=== PATIENT | female | born 1970 | race Caucasian/White ===

== ENCOUNTER → 2018-03-10 | Outpatient (CLI) | payer OTHER ==
[2018-03-10 18:28] LABS: Basophils % (A) 1 %; Eosinophils # (A) 0.4 k/uL (0-0.7); Eosinophils % (A) 6 %; HCT 33.8 % (34.0-46.0); HGB 11.1 gm/dL (11.4-16.0); Hypochromasia Slight; Lymphocytes % (A) 30 %; MCH 25.1 pg (25.0-35.0); MCHC 32.8 g/dL (31.0-37.0); MCV 76.7 fL (80.0-100.0); Mean Platelet Volume 8.8; Monocytes # (A) 0.4 k/uL (0-1.0); Monocytes % (A) 6 %; Neutrophils # (A) 3.6 k/uL (1.3-7.7); Neutrophils % (A) 55 %; Platelet Count 213 k/uL (150-450); RBC 4.41 m/uL (3.80-5.40); RDW 14.5 % (11.5-15.5); WBC 6.5 k/uL (3.8-10.6)
== END ==
LOC: LABPAT 16:48
PROVIDERS: ATTEND Obstetrics & Gynecology
DX: Z01.818 Encounter for other preprocedural examination (principal); Z01.812 Encounter for preprocedural laboratory examination; N93.8 Other specified abnormal uterine and vaginal bleeding
CPT/HCPCS: 36415; 85025; 93005

== ENCOUNTER 2021-01-10 09:24 | Inpatient (IN) | payer OTHER ==
[2021-01-10] MEDS ORDERED: SODIUM CHLORIDE 0.9% 1,000 ML IV STA (09:48)
--- NOTE | 2021-01-10 09:48 | ED ---
Abdominal Pain HPI - General Chief Complaint: Abdominal Pain Stated Complaint: Abdominal Pain Time Seen by Provider: 01/10/21 09:29 Source: patient, EMS Mode of arrival: EMS - History of Present Illness Initial Comments: 50-year-old female presents emergency Department with abdominal pain. Pain located in the right upper quadrant started yesterday around 7 PM after she ate some fast food col[place]ian fries. Pain was so severe that she went into [facility]. She had a CT of her abdomen and pelvis performed as well as an abdominal ultrasound and laboratory studies. Everything was normal and she was discharged home without any pain medications. States she received Toradol, morphine and Dilaudid over at the other facility with only mild improvement in her symptoms. Patient continued to have continued pain at home and therefore returns today via EMS. They did provide her with formula grams of morphine en route to the hospital. Denies history of similar in the past. Previous history of . Denies any abnormal vaginal bleeding or discharg e. No change in her bowel or bladder habits. Admits to nausea. No fevers. No chest pain or shortness of breath. No other alleviating, precipitating or modifying factors - Related Data Home Medications Medication Instructions Recorded Confirmed Atorvastatin [Lipitor] 20 mg PO DAILY 03/11/18 01/10/21 Fenofibrate Nanocrystallized 145 mg PO DAILY 03/11/18 01/10/21 [Fenofibrate] Metoprolol Tartrate [Lopressor] 50 mg PO BID 03/11/18 01/10/21 Omeprazole 20 mg PO DAILY 03/11/18 01/10/21 Sertraline [Zoloft] 75 mg PO DAILY 03/11/18 01/10/21 Irbesartan/Hydrochlorothiazide 1 tab PO DAILY 01/10/21 01/10/21 [Irbesartan-Hctz 300-12.5 mg Tb] Previous Rx's Medication Instructions Recorded Acetaminophen Tab [Tylenol] 650 mg PO Q6HR PRN tab 01/14/21 Omeprazole [PriLOSEC] 40 mg PO DAILY #30 cap 01/14/21 Allergies Allergy/AdvReac Type Severity Reaction Status Date / Time latex Allergy Rash/Hives Verified 01/10/21 11:11 Review of Systems ROS Statement: Those systems with pertinent positive or pertinent negative responses have been documented in the HPI. ROS Other: All systems not noted in ROS Statement are negative. Past Medical History Past Medical History: GERD/Reflux, Hyperlipidemia, Hypertension Additional Past Medical History / Comment(s): heavy periods History of Any Multi-Drug Resistant Organisms: None Reported Past Surgical History: Section Additional Past Surgical History / Comment(s): D&C. LIPOMA REMOVAL. CARPAL TUNNEL RELEASE Past Anesthesia/Blood Transfusion Reactions: No Reported Reaction Past Psychological History: Anxiety, Depression Smoking Status: Never smoker Past Alcohol Use History: Occasional Past Drug Use History: None Reported - Past Family History Mother Family Medical History: No Reported History Father Family Medical History: No Reported History General Exam General appearance: alert, in no apparent distress Head exam: Present: atraumatic, normocephalic, normal inspection Eye exam: Present: normal appearance, PERRL, EOMI. Absent: scleral icterus, conjunctival injection, periorbital swelling ENT exam: Present: normal exam, mucous membranes moist Neck exam: Present: normal inspection. Absent: tenderness, meningismus, lymphadenopathy Respiratory exam: Present: normal lung sounds bilaterally. Absent: respiratory distress, wheezes, rales, rhonchi, stridor Cardiovascular Exam: Present: regular rate, normal rhythm, normal heart sounds. Absent: systolic murmur, diastolic murmur, rubs, gallop, clicks GI/Abdominal exam: Present: soft, tenderness (RUQ), normal bowel sounds. Ab sent: distended, guarding, rebound, rigid Extremities exam: Present: normal inspection, full ROM, normal capillary refill. Absent: tenderness, pedal edema, joint swelling, calf tenderness Back exam: Present: normal inspection Neurological exam: Present: alert, oriented X3, CN II-XII intact Psychiatric exam: Present: normal affect, normal mood Skin exam: Present: warm, dry, intact, normal color. Absent: rash Course Vital Signs 01/10/21 01/10/21 09:26 14:55 Temperature 99.3 F 98.8 F Pulse Rate 100 Pulse Rate [ 91 Pulse Oximetery ] Respiratory 18 18 Rate Blood Pressure 133/67 Blood Pressure 157/79 [Right Arm] O2 Sat by Pulse 93 L 94 L Oximetry - Reevaluation(s) Reevaluation #1: 01/10/21 11:38 Still awaiting reports from [facility] Reevaluation #2: 01/10/21 12:00 still no ultrasound report - will have to repeat us here Medical Decision Making - Medical Decision Making Upon arrival patient is placed into room 27. We do attempt to obtain records from [facility] however they attempted 3 times to send the information are unable to receive it. I repeated laboratory studies which are all within normal limits. Urinalysis demonstrates moderate bacteria and blood. Covid negative. I did complete a gallbladder ultrasound which demonstrates no acute findings. Called and spoke with Dr. Dangelo. Dr. Dangelo agreed to admit the patient for HIDA. Patient agreed to the plan - Lab Data Result diagrams: 01/14/21 06:33 01/14/21 06:33 Lab Results 01/10/21 01/10/21 01/10/21 Range/Units 09:51 09:51 09:51 WBC 11.3 H (3.8-10.6) k/uL RBC 4.68 (3.80-5.40) m/uL Hgb 13.1 (11.4-16.0) gm/dL Hct 38.8 (34.0-46.0) % MCV 83.0 (80.0-100.0) fL MCH 27.9 (25.0-35.0) pg MCHC 33.6 (31.0-37.0) g/dL RDW 13.0 (11.5-15.5) % Plt Count 178 (150-450) k/uL MPV 9.5 Neutrophils % 87 % Lymphocytes % 8 % Monocytes % 4 % Eosinophils % 0 % Basophils % 0 % Neutrophils # 9.9 H (1.3-7.7) k/uL Lymphocytes # 0.9 L (1.0-4.8) k/uL Monocytes # 0.4 (0-1.0) k/uL Eosinophils # 0.1 (0-0.7) k/uL Basophils # 0.0 (0-0.2) k/uL ESR (0-20) mm/hr APTT (22.0-30.0) sec D-Dimer (<0.60) mg/L FEU Sodium 137 (137-145) mmol/L Potassium 3.8 (3.5-5.1) mmol/L Chloride 105 (98-107) mmol/L Carbon Dioxide 24 (22-30) mmol/L Anion Gap 8 mmol/L BUN 8 (7-17) mg/dL Creatinine 0.50 L (0.52-1.04) mg/dL Est GFR (CKD-EPI)AfAm >90 (>60 ml/min/1.73 sqM) Est GFR (CKD-EPI)NonAf >90 (>60 ml/min/1.73 sqM) Glucose 117 H (74-99) mg/dL Plasma Lactic Acid Moses (0.7-2.0) mmol/L Calcium 10.1 (8.4-10.2) mg/dL Magnesium (1.6-2.3) mg/dL Total Bilirubin 0.8 (0.2-1.3) mg/dL AST 35 (14-36) U/L ALT 30 (4-34) U/L Alkaline Phosphatase 52 (38-126) U/L Troponin I (0.000-0.034) ng/mL C-Reactive Protein (<1.0) mg/dL Total Protein 7.2 (6.3-8.2) g/dL Albumin 4.4 (3.5-5.0) g/dL Lipase 36 (23-300) U/L CA 125 Antigen (0.0-30.1) U/mL Urine Color Light Yellow Urine Appearance Cloudy H (Clear) Urine pH 7.0 (5.0-8.0) Ur Specific [place] 1.008 (1.001-1.035) Urine Protein Negative (Negative) Urine Glucose (UA) Negative (Negative) Urine Ketones Negative (Negative) Urine Blood Moderate H (Negative) Urine Nitrite Negative (Negative) Urine Bilirubin Negative (Negative) Urine Urobilinogen <2.0 (<2.0) mg/dL Ur Leukocyte Esterase Negative (Negative) Urine RBC 1 (0-5) /hpf Urine WBC 4 (0-5) /hpf Ur Squamous Epith Cells 3 (0-4) /hpf Urine Bacteria Moderate H (None) /hpf Urine Opiates Screen (NotDetected) Ur Oxycodone Screen (NotDetected) Urine Methadone Screen (NotDetected) Ur Propoxyphene Screen (NotDetected) Ur Barbiturates Screen (NotDetected) U Tricyclic Antidepress (NotDetected) Ur Phencyclidine Scrn (NotDetected) Ur Amphetamines Screen (NotDetected) U Methamphetamines Scrn (NotDetected) U Benzodiazepines Scrn (NotDetected) Urine Cocaine Screen (NotDetected) U Marijuana (THC) Screen (NotDetected) Coronavirus (PCR) (Not Detectd) 01/10/21 01/10/21 01/10/21 Range/Units 09:51 09:51 13:47 WBC (3.8-10.6) k/uL RBC (3.80-5.40) m/uL Hgb (11.4-16.0) gm/dL Hct (34.0-46.0) % MCV (80.0-100.0) fL MCH (25.0-35.0) pg MCHC (31.0-37.0) g/dL RDW (11.5-15.5) % Plt Count (150-450) k/uL MPV Neutrophils % % Lymphocytes % % Monocytes % % Eosinophils % % Basophils % % Neutrophils # (1.3-7.7) k/uL Lymphocytes # (1.0-4.8) k/uL Monocytes # (0-1.0) k/uL Eosinophils # (0-0.7) k/uL Basophils # (0-0.2) k/uL ESR (0-20) mm/hr APTT (22.0-30.0) sec D-Dimer (<0.60) mg/L FEU Sodium (137-145) mmol/L Potassium (3.5-5.1) mmol/L Chloride (98-107) mmol/L Carbon Dioxide (22-30) mmol/L Anion Gap mmol/L BUN (7-17) mg/dL Creatinine (0.52-1.04) mg/dL Est GFR (CKD-EPI)AfAm (>60 ml/min/1.73 sqM) Est GFR (CKD-EPI)NonAf (>60 ml/min/1.73 sqM) Glucose (74-99) mg/dL Plasma Lactic Acid Moses 1.6 (0.7-2.0) mmol/L Calcium (8.4-10.2) mg/dL Magnesium (1.6-2.3) mg/dL Total Bilirubin (0.2-1.3) mg/dL AST (14-36) U/L ALT (4-34) U/L Alkaline Phosphatase (38-126) U/L Troponin I 0.012 (0.000-0.034) ng/mL C-Reactive Protein (<1.0) mg/dL Total Protein (6.3-8.2) g/dL Albumin (3.5-5.0) g/dL Lipase (23-300) U/L CA 125 Antigen (0.0-30.1) U/mL Urine Color Urine Appearance (Clear) Urine pH (5.0-8.0) Ur Specific [place] (1.001-1.035) Urine Protein (Negative) Urine Glucose (UA) (Negative) Urine Ketones (Negative) Urine Blood (Negative) Urine Nitrite (Negative) Urine Bilirubin (Negative) Urine Urobilinogen (<2.0) mg/dL Ur Leukocyte Esterase (Negative) Urine RBC (0-5) /hpf Urine WBC (0-5) /hpf Ur Squamous Epith Cells (0-4) /hpf Urine Bacteria (None) /hpf Urine Opiates Screen (NotDetected) Ur Oxycodone Screen (NotDetected) Urine Methadone Screen (NotDetected) Ur Propoxyphene Screen (NotDetected) Ur Barbiturates Screen (NotDetected) U Tricyclic Antidepress (NotDetected) Ur Phencyclidine Scrn (NotDetected) Ur Amphetamines Screen (NotDetected) U Methamphetamines Scrn (NotDetected) U Benzodiazepines Scrn (NotDetected) Urine Cocaine Screen (NotDetected) U Marijuana (THC) Screen (NotDetected) Coronavirus (PCR) Not Detected (Not Detectd) 01/10/21 01/10/21 01/10/21 Range/Units 18:55 19:00 19:00 WBC 12.4 H (3.8-10.6) k/uL RBC 4.43 (3.80-5.40) m/uL Hgb 12.5 (11.4-16.0) gm/dL Hct 37.4 (34.0-46.0) % MCV 84.3 (80.0-100.0) fL MCH 28.1 (25.0-35.0) pg MCHC 33.3 (31.0-37.0) g/dL RDW 13.1 (11.5-15.5) % Plt Count 176 (150-450) k/uL MPV 9.0 Neutrophils % 88 % Lymphocytes % 6 % Monocytes % 3 % Eosinophils % 1 % Basophils % 0 % Neutrophils # 10.9 H (1.3-7.7) k/uL Lymphocytes # 0.8 L (1.0-4.8) k/uL Monocytes # 0.4 (0-1.0) k/uL Eosinophils # 0.1 (0-0.7) k/uL Basophils # 0.0 (0-0.2) k/uL ESR 12 (0-20) mm/hr APTT (22.0-30.0) sec D-Dimer 2.18 H (<0.60) mg/L FEU Sodium (137-145) mmol/L Potassium (3.5-5.1) mmol/L Chloride (98-107) mmol/L Carbon Dioxide (22-30) mmol/L Anion Gap mmol/L BUN (7-17) mg/dL Creatinine (0.52-1.04) mg/dL Est GFR (CKD-EPI)AfAm (>60 ml/min/1.73 sqM) Est GFR (CKD-EPI)NonAf (>60 ml/min/1.73 sqM) Glucose (74-99) mg/dL Plasma Lactic Acid Moses (0.7-2.0) mmol/L Calcium (8.4-10.2) mg/dL Magnesium (1.6-2.3) mg/dL Total Bilirubin (0.2-1.3) mg/dL AST (14-36) U/L ALT (4-34) U/L Alkaline Phosphatase (38-126) U/L Troponin I (0.000-0.034) ng/mL C-Reactive Protein (<1.0) mg/dL Total Protein (6.3-8.2) g/dL Albumin (3.5-5.0) g/dL Lipase (23-300) U/L CA 125 Antigen (0.0-30.1) U/mL Urine Color Urine Appearance (Clear) Urine pH (5.0-8.0) Ur Specific [place] (1.001-1.035) Urine Protein (Negative) Urine Glucose (UA) (Negative) Urine Ketones (Negative) Urine Blood (Negative) Urine Nitrite (Negative) Urine Bilirubin (Negative) Urine Urobilinogen (<2.0) mg/dL Ur Leukocyte Esterase (Negative) Urine RBC (0-5) /hpf Urine WBC (0-5) /hpf Ur Squamous Epith Cells (0-4) /hpf Urine Bacteria (None) /hpf Urine Opiates Screen Detected H (NotDetected) Ur Oxycodone Screen Not Detected (NotDetected) Urine Methadone Screen Not Detected (NotDetected) Ur Propoxyphene Screen Not Detected (NotDetected) Ur Barbiturates Screen Not Detected (NotDetected) U Tricyclic Antidepress Not Detected (NotDetected) Ur Phencyclidine Scrn Not Detected (NotDetected) Ur Amphetamines Screen Not Detected (NotDetected) U Methamphetamines Scrn Not Detected (NotDetected) U Benzodiazepines Scrn Detected H (NotDetected) Urine Cocaine Screen Not Detected (NotDetected) U Marijuana (THC) Screen Not Detected (NotDetected) Coronavirus (PCR) (Not Detectd) 01/10/21 01/10/21 01/10/21 Range/Units 19:00 19:00 19:18 WBC (3.8-10.6) k/uL RBC (3.80-5.40) m/uL Hgb (11.4-16.0) gm/dL Hct (34.0-46.0) % MCV (80.0-100.0) fL MCH (25.0-35.0) pg MCHC (31.0-37.0) g/dL RDW (11.5-15.5) % Plt Count (150-450) k/uL MPV Neutrophils % % Lymphocytes % % Monocytes % % Eosinophils % % Basophils % % Neutrophils # (1.3-7.7) k/uL Lymphocytes # (1.0-4.8) k/uL Monocytes # (0-1.0) k/uL Eosinophils # (0-0.7) k/uL Basophils # (0-0.2) k/uL ESR (0-20) mm/hr APTT (22.0-30.0) sec D-Dimer (<0.60) mg/L FEU Sodium 136 L (137-145) mmol/L Potassium 3.9 (3.5-5.1) mmol/L Chloride 103 (98-107) mmol/L Carbon Dioxide 26 (22-30) mmol/L Anion Gap 7 mmol/L BUN 9 (7-17) mg/dL Creatinine 0.49 L (0.52-1.04) mg/dL Est GFR (CKD-EPI)AfAm >90 (>60 ml/min/1.73 sqM) Est GFR (CKD-EPI)NonAf >90 (>60 ml/min/1.73 sqM) Glucose 111 H (74-99) mg/dL Plasma Lactic Acid Moses (0.7-2.0) mmol/L Calcium 9.1 (8.4-10.2) mg/dL Magnesium (1.6-2.3) mg/dL Total Bilirubin 0.9 (0.2-1.3) mg/dL AST 35 (14-36) U/L ALT 27 (4-34) U/L Alkaline Phosphatase 48 (38-126) U/L Troponin I 0.021 (0.000-0.034) ng/mL C-Reactive Protein 14.3 H (<1.0) mg/dL Total Protein 6.8 (6.3-8.2) g/dL Albumin 4.0 (3.5-5.0) g/dL Lipase (23-300) U/L CA 125 Antigen (0.0-30.1) U/mL Urine Color Urine Appearance (Clear) Urine pH (5.0-8.0) Ur Specific [place] (1.001-1.035) Urine Protein (Negative) Urine Glucose (UA) (Negative) Urine Ketones (Negative) Urine Blood (Negative) Urine Nitrite (Negative) Urine Bilirubin (Negative) Urine Urobilinogen (<2.0) mg/dL Ur Leukocyte Esterase (Negative) Urine RBC (0-5) /hpf Urine WBC (0-5) /hpf Ur Squamous Epith Cells (0-4) /hpf Urine Bacteria (None) /hpf Urine Opiates Screen (NotDetected) Ur Oxycodone Screen (NotDetected) Urine Methadone Screen (NotDetected) Ur Propoxyphene Screen (NotDetected) Ur Barbiturates Screen (NotDetected) U Tricyclic Antidepress (NotDetected) Ur Phencyclidine Scrn (NotDetected) Ur Amphetamines Screen (NotDetected) U Methamphetamines Scrn (NotDetected) U Benzodiazepines Scrn (NotDetected) Urine Cocaine Screen (NotDetected) U Marijuana (THC) Screen (NotDetected) Coronavirus (PCR) Not Detected (Not Detectd) 01/11/21 01/11/21 01/11/21 Range/Units 09:48 09:48 09:48 WBC 9.5 (3.8-10.6) k/uL RBC 4.49 (3.80-5.40) m/uL Hgb 12.4 (11.4-16.0) gm/dL Hct 38.4 (34.0-46.0) % MCV 85.6 (80.0-100.0) fL MCH 27.7 (25.0-35.0) pg MCHC 32.4 (31.0-37.0) g/dL RDW 13.1 (11.5-15.5) % Plt Count 156 (150-450) k/uL MPV 9.2 Neutrophils % 87 % Lymphocytes % 7 % Monocytes % 3 % Eosinophils % 2 % Basophils % 0 % Neutrophils # 8.2 H (1.3-7.7) k/uL Lymphocytes # 0.7 L (1.0-4.8) k/uL Monocytes # 0.3 (0-1.0) k/uL Eosinophils # 0.2 (0-0.7) k/uL Basophils # 0.0 (0-0.2) k/uL ESR (0-20) mm/hr APTT 40.3 H (22.0-30.0) sec D-Dimer (<0.60) mg/L FEU Sodium 138 (137-145) mmol/L Potassium 3.6 (3.5-5.1) mmol/L Chloride 107 (98-107) mmol/L Carbon Dioxide 22 (22-30) mmol/L Anion Gap 9 mmol/L BUN 5 L (7-17) mg/dL Creatinine 0.52 (0.52-1.04) mg/dL Est GFR (CKD-EPI)AfAm >90 (>60 ml/min/1.73 sqM) Est GFR (CKD-EPI)NonAf >90 (>60 ml/min/1.73 sqM) Glucose 99 (74-99) mg/dL Plasma Lactic Acid Moses (0.7-2.0) mmol/L Calcium 9.0 (8.4-10.2) mg/dL Magnesium (1.6-2.3) mg/dL Total Bilirubin 1.3 (0.2-1.3) mg/dL AST 44 H (14-36) U/L ALT 26 (4-34) U/L Alkaline Phosphatase 89 (38-126) U/L Troponin I (0.000-0.034) ng/mL C-Reactive Protein (<1.0) mg/dL Total Protein 7.2 (6.3-8.2) g/dL Albumin 4.1 (3.5-5.0) g/dL Lipase (23-300) U/L CA 125 Antigen (0.0-30.1) U/mL Urine Color Urine Appearance (Clear) Urine pH (5.0-8.0) Ur Specific [place] (1.001-1.035) Urine Protein (Negative) Urine Glucose (UA) (Negative) Urine Ketones (Negative) Urine Blood (Negative) Urine Nitrite (Negative) Urine Bilirubin (Negative) Urine Urobilinogen (<2.0) mg/dL Ur Leukocyte Esterase (Negative) Urine RBC (0-5) /hpf Urine WBC (0-5) /hpf Ur Squamous Epith Cells (0-4) /hpf Urine Bacteria (None) /hpf Urine Opiates Screen (NotDetected) Ur Oxycodone Screen (NotDetected) Urine Methadone Screen (NotDetected) Ur Propoxyphene Screen (NotDetected) Ur Barbiturates Screen (NotDetected) U Tricyclic Antidepress (NotDetected) Ur Phencyclidine Scrn (NotDetected) Ur Amphetamines Screen (NotDetected) U Methamphetamines Scrn (NotDetected) U Benzodiazepines Scrn (NotDetected) Urine Cocaine Screen (NotDetected) U Marijuana (THC) Screen (NotDetected) Coronavirus (PCR) (Not Detectd) 01/11/21 01/11/21 01/12/21 Range/Units 18:26 18:26 08:06 WBC 7.1 (3.8-10.6) k/uL RBC 4.34 (3.80-5.40) m/uL Hgb 12.1 (11.4-16.0) gm/dL Hct 37.0 (34.0-46.0) % MCV 85.3 (80.0-100.0) fL MCH 27.9 (25.0-35.0) pg MCHC 32.7 (31.0-37.0) g/dL RDW 13.0 (11.5-15.5) % Plt Count 174 (150-450) k/uL MPV 9.4 Neutrophils % 80 % Lymphocytes % 12 % Monocytes % 3 % Eosinophils % 4 % Basophils % 0 % Neutrophils # 5.7 (1.3-7.7) k/uL Lymphocytes # 0.8 L (1.0-4.8) k/uL Monocytes # 0.2 (0-1.0) k/uL Eosinophils # 0.3 (0-0.7) k/uL Basophils # 0.0 (0-0.2) k/uL ESR (0-20) mm/hr APTT 58.4 H (22.0-30.0) sec D-Dimer (<0.60) mg/L FEU Sodium (137-145) mmol/L Potassium (3.5-5.1) mmol/L Chloride (98-107) mmol/L Carbon Dioxide (22-30) mmol/L Anion Gap mmol/L BUN (7-17) mg/dL Creatinine (0.52-1.04) mg/dL Est GFR (CKD-EPI)AfAm (>60 ml/min/1.73 sqM) Est GFR (CKD-EPI)NonAf (>60 ml/min/1.73 sqM) Glucose (74-99) mg/dL Plasma Lactic Acid Moses (0.7-2.0) mmol/L Calcium (8.4-10.2) mg/dL Magnesium (1.6-2.3) mg/dL Total Bilirubin (0.2-1.3) mg/dL AST (14-36) U/L ALT (4-34) U/L Alkaline Phosphatase (38-126) U/L Troponin I (0.000-0.034) ng/mL C-Reactive Protein (<1.0) mg/dL Total Protein (6.3-8.2) g/dL Albumin (3.5-5.0) g/dL Lipase (23-300) U/L CA 125 Antigen 2069.0 H (0.0-30.1) U/mL Urine Color Urine Appearance (Clear) Urine pH (5.0-8.0) Ur Specific [place] (1.001-1.035) Urine Protein (Negative) Urine Glucose (UA) (Negative) Urine Ketones (Negative) Urine Blood (Negative) Urine Nitrite (Negative) Urine Bilirubin (Negative) Urine Urobilinogen (<2.0) mg/dL Ur Leukocyte Esterase (Negative) Urine RBC (0-5) /hpf Urine WBC (0-5) /hpf Ur Squamous Epith Cells (0-4) /hpf Urine Bacteria (None) /hpf Urine Opiates Screen (NotDetected) Ur Oxycodone Screen (NotDetected) Urine Methadone Screen (NotDetected) Ur Propoxyphene Screen (NotDetected) Ur Barbiturates Screen (NotDetected) U Tricyclic Antidepress (NotDetected) Ur Phencyclidine Scrn (NotDetected) Ur Amphetamines Screen (NotDetected) U Methamphetamines Scrn (NotDetected) U Benzodiazepines Scrn (NotDetected) Urine Cocaine Screen (NotDetected) U Marijuana (THC) Screen (NotDetected) Coronavirus (PCR) (Not Detectd) 01/12/21 01/12/21 01/12/21 Range/Units 08:06 08:06 08:06 WBC (3.8-10.6) k/uL RBC (3.80-5.40) m/uL Hgb (11.4-16.0) gm/dL Hct (34.0-46.0) % MCV (80.0-100.0) fL MCH (25.0-35.0) pg MCHC (31.0-37.0) g/dL RDW (11.5-15.5) % Plt Count (150-450) k/uL MPV Neutrophils % % Lymphocytes % % Monocytes % % Eosinophils % % Basophils % % Neutrophils # (1.3-7.7) k/uL Lymphocytes # (1.0-4.8) k/uL Monocytes # (0-1.0) k/uL Eosinophils # (0-0.7) k/uL Basophils # (0-0.2) k/uL ESR (0-20) mm/hr APTT 51.2 H (22.0-30.0) sec D-Dimer (<0.60) mg/L FEU Sodium 139 (137-145) mmol/L Potassium 3.2 L (3.5-5.1) mmol/L Chloride 105 (98-107) mmol/L Carbon Dioxide 26 (22-30) mmol/L Anion Gap 8 mmol/L BUN 6 L (7-17) mg/dL Creatinine 0.55 (0.52-1.04) mg/dL Est GFR (CKD-EPI)AfAm >90 (>60 ml/min/1.73 sqM) Est GFR (CKD-EPI)NonAf >90 (>60 ml/min/1.73 sqM) Glucose 138 H (74-99) mg/dL Plasma Lactic Acid Moses (0.7-2.0) mmol/L Calcium 9.2 (8.4-10.2) mg/dL Magnesium 3.9 H (1.6-2.3) mg/dL Total Bilirubin 0.8 (0.2-1.3) mg/dL AST 28 (14-36) U/L ALT 22 (4-34) U/L Alkaline Phosphatase 68 (38-126) U/L Troponin I (0.000-0.034) ng/mL C-Reactive Protein (<1.0) mg/dL Total Protein 7.3 (6.3-8.2) g/dL Albumin 4.1 (3.5-5.0) g/dL Lipase (23-300) U/L CA 125 Antigen (0.0-30.1) U/mL Urine Color Urine Appearance (Clear) Urine pH (5.0-8.0) Ur Specific [place] (1.001-1.035) Urine Protein (Negative) Urine Glucose (UA) (Negative) Urine Ketones (Negative) Urine Blood (Negative) Urine Nitrite (Negative) Urine Bilirubin (Negative) Urine Urobilinogen (<2.0) mg/dL Ur Leukocyte Esterase (Negative) Urine RBC (0-5) /hpf Urine WBC (0-5) /hpf Ur Squamous Epith Cells (0-4) /hpf Urine Bacteria (None) /hpf Urine Opiates Screen (NotDetected) Ur Oxycodone Screen (NotDetected) Urine Methadone Screen (NotDetected) Ur Propoxyphene Screen (NotDetected) Ur Barbiturates Screen (NotDetected) U Tricyclic Antidepress (NotDetected) Ur Phencyclidine Scrn (NotDetected) Ur Amphetamines Screen (NotDetected) U Methamphetamines Scrn (NotDetected) U Benzodiazepines Scrn (NotDetected) Urine Cocaine Screen (NotDetected) U Marijuana (THC) Screen (NotDetected) Coronavirus (PCR) (Not Detectd) 01/13/21 01/13/21 01/14/21 Range/Units 07:38 07:38 06:33 WBC 4.2 5.2 (3.8-10.6) k/uL RBC 3.94 3.90 (3.80-5.40) m/uL Hgb 10.9 L 11.0 L (11.4-16.0) gm/dL Hct 33.8 L 32.8 L (34.0-46.0) % MCV 85.8 84.0 (80.0-100.0) fL MCH 27.7 28.2 (25.0-35.0) pg MCHC 32.4 33.6 (31.0-37.0) g/dL RDW 13.1 12.9 (11.5-15.5) % Plt Count 173 187 (150-450) k/uL MPV 9.2 9.3 Neutrophils % 62 65 % Lymphocytes % 23 20 % Monocytes % 6 7 % Eosinophils % 6 6 % Basophils % 0 0 % Neutrophils # 2.6 3.3 (1.3-7.7) k/uL Lymphocytes # 1.0 1.0 (1.0-4.8) k/uL Monocytes # 0.3 0.3 (0-1.0) k/uL Eosinophils # 0.3 0.3 (0-0.7) k/uL Basophils # 0.0 0.0 (0-0.2) k/uL ESR (0-20) mm/hr APTT (22.0-30.0) sec D-Dimer (<0.60) mg/L FEU Sodium 139 (137-145) mmol/L Potassium 3.7 (3.5-5.1) mmol/L Chloride 104 (98-107) mmol/L Carbon Dioxide 29 (22-30) mmol/L Anion Gap 6 mmol/L BUN 11 (7-17) mg/dL Creatinine 0.64 (0.52-1.04) mg/dL Est GFR (CKD-EPI)AfAm >90 (>60 ml/min/1.73 sqM) Est GFR (CKD-EPI)NonAf >90 (>60 ml/min/1.73 sqM) Glucose 105 H (74-99) mg/dL Plasma Lactic Acid Moses (0.7-2.0) mmol/L Calcium 8.9 (8.4-10.2) mg/dL Magnesium 2.0 (1.6-2.3) mg/dL Total Bilirubin 0.6 (0.2-1.3) mg/dL AST 22 (14-36) U/L ALT 19 (4-34) U/L Alkaline Phosphatase 51 (38-126) U/L Troponin I (0.000-0.034) ng/mL C-Reactive Protein (<1.0) mg/dL Total Protein 6.6 (6.3-8.2) g/dL Albumin 3.7 (3.5-5.0) g/dL Lipase (23-300) U/L CA 125 Antigen (0.0-30.1) U/mL Urine Color Urine Appearance (Clear) Urine pH (5.0-8.0) Ur Specific [place] (1.001-1.035) Urine Protein (Negative) Urine Glucose (UA) (Negative) Urine Ketones (Negative) Urine Blood (Negative) Urine Nitrite (Negative) Urine Bilirubin (Negative) Urine Urobilinogen (<2.0) mg/dL Ur Leukocyte Esterase (Negative) Urine RBC (0-5) /hpf Urine WBC (0-5) /hpf Ur Squamous Epith Cells (0-4) /hpf Urine Bacteria (None) /hpf Urine Opiates Screen (NotDetected) Ur Oxycodone Screen (NotDetected) Urine Methadone Screen (NotDetected) Ur Propoxyphene Screen (NotDetected) Ur Barbiturates Screen (NotDetected) U Tricyclic Antidepress (NotDetected) Ur Phencyclidine Scrn (NotDetected) Ur Amphetamines Screen (NotDetected) U Methamphetamines Scrn (NotDetected) U Benzodiazepines Scrn (NotDetected) Urine Cocaine Screen (NotDetected) U Marijuana (THC) Screen (NotDetected) Coronavirus (PCR) (Not Detectd) 01/14/21 Range/Units 06:33 WBC (3.8-10.6) k/uL RBC (3.80-5.40) m/uL Hgb (11.4-16.0) gm/dL Hct (34.0-46.0) % MCV (80.0-100.0) fL MCH (25.0-35.0) pg MCHC (31.0-37.0) g/dL RDW (11.5-15.5) % Plt Count (150-450) k/uL MPV Neutrophils % % Lymphocytes % % Monocytes % % Eosinophils % % Basophils % % Neutrophils # (1.3-7.7) k/uL Lymphocytes # (1.0-4.8) k/uL Monocytes # (0-1.0) k/uL Eosinophils # (0-0.7) k/uL Basophils # (0-0.2) k/uL ESR (0-20) mm/hr APTT (22.0-30.0) sec D-Dimer (<0.60) mg/L FEU Sodium 140 (137-145) mmol/L Potassium 4.0 (3.5-5.1) mmol/L Chloride 106 (98-107) mmol/L Carbon Dioxide 28 (22-30) mmol/L Anion Gap 6 mmol/L BUN 6 L (7-17) mg/dL Creatinine 0.59 (0.52-1.04) mg/dL Est GFR (CKD-EPI)AfAm >90 (>60 ml/min/1.73 sqM) Est GFR (CKD-EPI)NonAf >90 (>60 ml/min/1.73 sqM) Glucose 105 H (74-99) mg/dL Plasma Lactic Acid Moses (0.7-2.0) mmol/L Calcium 8.9 (8.4-10.2) mg/dL Magnesium (1.6-2.3) mg/dL Total Bilirubin (0.2-1.3) mg/dL AST (14-36) U/L ALT (4-34) U/L Alkaline Phosphatase (38-126) U/L Troponin I (0.000-0.034) ng/mL C-Reactive Protein (<1.0) mg/dL Total Protein (6.3-8.2) g/dL Albumin (3.5-5.0) g/dL Lipase (23-300) U/L CA 125 Antigen (0.0-30.1) U/mL Urine Color Urine Appearance (Clear) Urine pH (5.0-8.0) Ur Specific [place] (1.001-1.035) Urine Protein (Negative) Urine Glucose (UA) (Negative) Urine Ketones (Negative) Urine Blood (Negative) Urine Nitrite (Negative) Urine Bilirubin (Negative) Urine Urobilinogen (<2.0) mg/dL Ur Leukocyte Esterase (Negative) Urine RBC (0-5) /hpf Urine WBC (0-5) /hpf Ur Squamous Epith Cells (0-4) /hpf Urine Bacteria (None) /hpf Urine Opiates Screen (NotDetected) Ur Oxycodone Screen (NotDetected) Urine Methadone Screen (NotDetected) Ur Propoxyphene Screen (NotDetected) Ur Barbiturates Screen (NotDetected) U Tricyclic Antidepress (NotDetected) Ur Phencyclidine Scrn (NotDetected) Ur Amphetamines Screen (NotDetected) U Methamphetamines Scrn (NotDetected) U Benzodiazepines Scrn (NotDetected) Urine Cocaine Screen (NotDetected) U Marijuana (THC) Screen (NotDetected) Coronavirus (PCR) (Not Detectd) - EKG Data EKG Comments: EKG demonstrates normal sinus rhythm with a ventricular rate of 89. AL interval 196. QRS 86. QTC of 435. No acute ST segment elevations or depressions. Q wave in lead 3 Disposition Clinical Impression: Abdominal pain Disposition: ADMITTED IP TO THIS HOSP Condition: Stable Is patient prescribed a controlled substance at d/c from ED?: No Decision to Admit Reason: Admit from EC Decision Date: 01/10/21 Decision Time: 13:03
[2021-01-10 10:05] LABS: Basophils % (A) 0 %; Eosinophils # (A) 0.1 k/uL (0-0.7); Eosinophils % (A) 0 %; HCT 38.8 % (34.0-46.0); HGB 13.1 gm/dL (11.4-16.0); Lymphocytes # (A) 0.9 k/uL (1.0-4.8); Lymphocytes % (A) 8 %; MCH 27.9 pg (25.0-35.0); MCHC 33.6 g/dL (31.0-37.0); Mean Platelet Volume 9.5; Monocytes # (A) 0.4 k/uL (0-1.0); Monocytes % (A) 4 %; Neutrophils # (A) 9.9 k/uL (1.3-7.7); Neutrophils % (A) 87 %; Platelet Count 178 k/uL (150-450); RBC 4.68 m/uL (3.80-5.40); WBC 11.3 k/uL (3.8-10.6)
[2021-01-10 10:17] LABS: ALT 30 U/L (4-34); AST 35 U/L (14-36); African American GFR (CKD) >90 (>60 ml/min/1.73 sqM); Albumin 4.4 g/dL (3.5-5.0); Alkaline Phosphatase 52 U/L (38-126); Anion Gap 8 mmol/L; Blood Urea Nitrogen 8 mg/dL (7-17); Calcium 10.1 mg/dL (8.4-10.2); Carbon Dioxide 24 mmol/L (22-30); Chloride 105 mmol/L (98-107); Glucose 117 mg/dL (74-99); Lipase 36 U/L (23-300); Non-African American GFR(CKD) >90 (>60 ml/min/1.73 sqM); Potassium 3.8 mmol/L (3.5-5.1); Sodium 137 mmol/L (137-145); Total Bilirubin 0.8 mg/dL (0.2-1.3); Total Protein 7.2 g/dL (6.3-8.2)
[2021-01-10 10:34] LABS: Appearance,Urine Cloudy (Clear); Bacteria,Urine Moderate /hpf; Bilirubin,Urine Negative (Negative); Blood,Urine Moderate (Negative); Color,Urine Light Yellow; Glucose,Urine (UA) Negative (Negative); Ketones,Urine Negative (Negative); Leukocyte Esterase,Urine Negative (Negative); Nitrite,Urine Negative (Negative); Protein,Urine Negative (Negative); RBC,Urine 1 /hpf (0-5); Specific Gravity,Urine 1.008 (1.001-1.035); Squamous Epithelial Cell,Urine 3 /hpf (0-4); Urobilinogen,Urine <2.0 mg/dL (<2.0); WBC,Urine 4 /hpf (0-5)
[2021-01-10] MEDS ORDERED: HYDROmorphone 1 MG/ML 1 ML SYRINGE IVP STA (10:43)
--- NOTE | 2021-01-10 12:42 | US ---
EXAMINATION TYPE: US gallbladder DATE OF EXAM: 01/10/2021 COMPARISON: NONE CLINICAL HISTORY: ab pain. EXAM MEASUREMENTS: Liver Length: 19.7 cm Gallbladder Wall: 0.2 cm CBD: 0.4 cm Right Kidney: 11.5 x 5.1 x 4.8 cm Patient of large body habitus with extensive overlying bowel gas. Pancreas: Obscured by bowel gas Liver: measures large, attenuating Gallbladder: wnl, as seen, somewhat limited visualization Evidence for sonographic Babb's sign: no CBD: wnl Right Kidney: wnl IMPRESSION: 1. Hepatomegaly correlate for hepatocellular disease or hepatic steatosis.
[2021-01-10] MEDS ORDERED: NALOXONE 0.4 MG/ML 1 ML VIAL IV PRN (13:03)
[2021-01-10] MEDS: PANTOPRAZOLE 40 MG/10 ML VIAL IV SCH ×3 (14:57→20:20)
[2021-01-10] MEDS: SODIUM CHLORIDE 0.9% 1,000 ML IV SCH ×2 (14:57→20:29)
[2021-01-10] MEDS: HYDROmorphone 1 MG/ML 1 ML SYRINGE IVP PRN ×2 (15:04→20:21)
--- NOTE | 2021-01-10 16:16 | P.GSHP ---
History of Present Illness H&P Date: 01/10/21 CHIEF COMPLAINT: Abdominal pain HISTORY OF PRESENT ILLNESS: This is a 50-year-old female who presents to the hospital with upper abdominal pain mostly in the center and right side. Patient reports symptoms started around 7:00 last night after she had eaten fries for dinner. Patient had initially went to [facility] last night had a computed tomography scan of the abdomen with IV contrast and per patient she was told there is no significant findings and was discharged from the ER. Patient reports that she continues to have the pain she describes them as spasming and burning sensation. She does have known chronic back pain in which she takes a combination of Advil Motrin and Tylenol. She reports that she alternates the Advil and Motrin. But at times she takes 3-4 Advil pills almost daily in the morning. She denies any nausea vomiting. Denies any fever or chills. Denies any change in bowel movements. Denies any urinary symptoms. PAST MEDICAL HISTORY: Back pain with pinched nerve undergoing workup outpatient, hypertension, hyperlipidemia, depression, anxiety, GERD PAST SURGICAL HISTORY: , laparoscopy for endometriosis MEDICATIONS: See list. ALLERGIES: See list. SOCIAL HISTORY: No illicit drug use. Prior history of smoking REVIEW OF SYSTEMS: CONSTITUTIONAL: Denies fever or chills. HEENT: Denies blurred vision, vision changes, or eye pain. Denies hemoptysis CARDIOVASCULAR: Denies chest pain or pressure. RESPIRATORY: No shortness of breath. GASTROINTESTINAL: See HPI for pertinent findings HEMATOLOGIC: Denies bleeding disorders. GENITOURINARY: Denies any blood in urine or increased urinary frequency. SKIN: Denies pruitis. Denies rash. PHYSICAL EXAM: VITAL SIGNS: Reviewed GENERAL: Well-developed in no acute distress. HEENT: No sclera icterus. Extraocular movements grossly intact. Moist buccal mucosa. Head is atraumatic, normocephalic. No nasal drainage. ABDOMEN: Soft. Nondistended. Tender with palpation in the epigastric right u pper quadrant and umbilicus area NEUROLOGIC: Alert and oriented. Cranial nerves II through XII grossly intact. LABORATORY DATA: WBC is 11.3 Hgb 13.1 platelets 178 Sodium 137 potassium 3.8 BUN 8 creatinine 0.50 glucose 117 LFTs normal Troponin negative Lipase 36 Urinalysis negative for infection COVID-19 not detected IMAGING: Gallbladder ultrasound shows hepatomegaly correlate for hepatocellular disease or hepatic steatosis ASSESSMENT: 1. Abdominal pain mostly right upper quadrant and epigastric area PLAN: -Follow up on HIDA scan to rule out any gallbladder dysfunction -Continue a low-fat diet -Continue pain medication as needed -We'll try to obtain computed tomography scan abdomen results from [facility] -Medicine service consulted for medical management -GI prophylaxis Protonix and DVT prophylaxis subcu heparin Physician Methods Study Analyst note has been reviewed by physician. Signing provider agrees with the documented findings, assessment, and plan of care. Past Medical History Past Medical History: GERD/Reflux, Hyperlipidemia, Hypertension Additional Past Medical History / Comment(s): heavy periods History of Any Multi-Drug Resistant Organisms: None Reported Past Surgical History: Section Additional Past Surgical History / Comment(s): D&C. LIPOMA REMOVAL. CARPAL TUNNEL RELEASE Past Anesthesia/Blood Transfusion Reactions: No Reported Reaction Past Psychological History: Anxiety, Depression Smoking Status: Never smoker Past Alcohol Use History: Occasional Past Drug Use History: None Reported - Past Family History Mother Family Medical History: No Reported History Father Family Medical History: No Reported History Medications and Allergies Home Medications Medication Instructions Recorded Confirmed Type Atorvastatin [Lipitor] 20 mg PO DAILY 03/11/18 01/10/21 History Fenofibrate Nanocrystallized 145 mg PO DAILY 03/11/18 01/10/21 History [Fenofibrate] Metoprolol Tartrate [Lopressor] 50 mg PO BID 03/11/18 01/10/21 History Omeprazole 20 mg PO DAILY 03/11/18 01/10/21 History Sertraline [Zoloft] 75 mg PO DAILY 03/11/18 01/10/21 History Irbesartan/Hydrochlorothiazide 1 tab PO DAILY 01/10/21 01/10/21 History [Irbesartan-Hctz 300-12.5 mg Tb] Allergies Allergy/AdvReac Type Severity Reaction Status Date / Time latex Allergy Rash/Hives Verified 01/10/21 11:11 Surgical - Exam Vital Signs Temp Pulse Resp BP Pulse Ox 99.3 F 100 18 133/67 93 L 01/10/21 09:26 01/10/21 09:26 01/10/21 09:26 01/10/21 09:26 01/10/21 09:26 Results - Labs 01/10/21 09:51 01/10/21 09:51 Abnormal Lab Results - Last 24 Hours (Table) 01/10/21 01/10/21 01/10/21 Range/Units 09:51 09:51 09:51 WBC 11.3 H (3.8-10.6) k/uL Neutrophils # 9.9 H (1.3-7.7) k/uL Lymphocytes # 0.9 L (1.0-4.8) k/uL Creatinine 0.50 L (0.52-1.04) mg/dL Glucose 117 H (74-99) mg/dL Urine Appearance Cloudy H (Clear) Urine Blood Moderate H (Negative) Urine Bacteria Moderate H (None) /hpf Diabetes panel 01/10/21 Range/Units 09:51 Sodium 137 (137-145) mmol/L Potassium 3.8 (3.5-5.1) mmol/L Chloride 105 (98-107) mmol/L Carbon Dioxide 24 (22-30) mmol/L BUN 8 (7-17) mg/dL Creatinine 0.50 L (0.52-1.04) mg/dL Glucose 117 H (74-99) mg/dL Calcium 10.1 (8.4-10.2) mg/dL AST 35 (14-36) U/L ALT 30 (4-34) U/L Alkaline Phosphatase 52 (38-126) U/L Total Protein 7.2 (6.3-8.2) g/dL Albumin 4.4 (3.5-5.0) g/dL Calcium panel 01/10/21 Range/Units 09:51 Calcium 10.1 (8.4-10.2) mg/dL Albumin 4.4 (3.5-5.0) g/dL Pituitary panel 01/10/21 Range/Units 09:51 Sodium 137 (137-145) mmol/L Potassium 3.8 (3.5-5.1) mmol/L Chloride 105 (98-107) mmol/L Carbon Dioxide 24 (22-30) mmol/L BUN 8 (7-17) mg/dL Creatinine 0.50 L (0.52-1.04) mg/dL Glucose 117 H (74-99) mg/dL Calcium 10.1 (8.4-10.2) mg/dL Adrenal panel 01/10/21 Range/Units 09:51 Sodium 137 (137-145) mmol/L Potassium 3.8 (3.5-5.1) mmol/L Chloride 105 (98-107) mmol/L Carbon Dioxide 24 (22-30) mmol/L BUN 8 (7-17) mg/dL Creatinine 0.50 L (0.52-1.04) mg/dL Glucose 117 H (74-99) mg/dL Calcium 10.1 (8.4-10.2) mg/dL Total Bilirubin 0.8 (0.2-1.3) mg/dL AST 35 (14-36) U/L ALT 30 (4-34) U/L Alkaline Phosphatase 52 (38-126) U/L Total Protein 7.2 (6.3-8.2) g/dL Albumin 4.4 (3.5-5.0) g/dL
[2021-01-10] MEDS: HYDROcodone/APAP 5-325MG 1 EACH TAB PO PRN (17:38)
[2021-01-10] MEDS ORDERED: IOPAMIDOL CONTRAST (ORAL USE) VIAL PO PRN (18:33)
--- NOTE | 2021-01-10 19:08 | XR ---
EXAMINATION TYPE: XR chest 1V portable DATE OF EXAM: 01/10/2021 CLINICAL HISTORY: chf. TECHNIQUE: Portable frontal view of the chest. COMPARISON: None FINDINGS: Cardiomegaly. Pulmonary vasculature is congested. There is mild bibasilar airspace opacitie s. No pleural effusion. No pneumothorax seen. No acute displaced osseous fracture. IMPRESSION: Cardiomegaly and pulmonary vascular congestion likely represent CHF.
[2021-01-10 19:11] LABS: Amphetamine Screen,Urine Not Detected (NotDetected); Barbiturate Screen,Urine Not Detected (NotDetected); Benzodiazepines Screen,Urine Detected (NotDetected); Cocaine Screen,Urine Not Detected (NotDetected); Methadone Screen, Urine Not Detected (NotDetected); Opiate Screen,Urine Detected (NotDetected); Oxycodone Screen, Urine Not Detected (NotDetected); Phencyclidine Screen,Urine Not Detected (NotDetected); Tricyclic Antidepressant,Urine Not Detected (NotDetected); Urn Cannabinoid Scrn Not Detected (NotDetected)
[2021-01-10 19:41] LABS: ALT 27 U/L (4-34); AST 35 U/L (14-36); African American GFR (CKD) >90 (>60 ml/min/1.73 sqM); Alkaline Phosphatase 48 U/L (38-126); Anion Gap 7 mmol/L; Blood Urea Nitrogen 9 mg/dL (7-17); Calcium 9.1 mg/dL (8.4-10.2); Carbon Dioxide 26 mmol/L (22-30); Chloride 103 mmol/L (98-107); Glucose 111 mg/dL (74-99); Non-African American GFR(CKD) >90 (>60 ml/min/1.73 sqM); Potassium 3.9 mmol/L (3.5-5.1); Sodium 136 mmol/L (137-145); Total Bilirubin 0.9 mg/dL (0.2-1.3); Total Protein 6.8 g/dL (6.3-8.2)
[2021-01-10 19:50] LABS: Basophils % (A) 0 %; Eosinophils # (A) 0.1 k/uL (0-0.7); Eosinophils % (A) 1 %; HCT 37.4 % (34.0-46.0); HGB 12.5 gm/dL (11.4-16.0); Lymphocytes # (A) 0.8 k/uL (1.0-4.8); Lymphocytes % (A) 6 %; MCH 28.1 pg (25.0-35.0); MCHC 33.3 g/dL (31.0-37.0); MCV 84.3 fL (80.0-100.0); Monocytes # (A) 0.4 k/uL (0-1.0); Monocytes % (A) 3 %; Neutrophils # (A) 10.9 k/uL (1.3-7.7); Neutrophils % (A) 88 %; Platelet Count 176 k/uL (150-450); RBC 4.43 m/uL (3.80-5.40); RDW 13.1 % (11.5-15.5); WBC 12.4 k/uL (3.8-10.6)
[2021-01-10 20:00] LABS: C Reactive Protein 14.3 mg/dL (<1.0)
[2021-01-10] MEDS: METOPROLOL TARTRATE 50 MG TAB PO SCH (20:19)
[2021-01-10] MEDS: ONDANSETRON 4 MG/2 ML VIAL IVP PRN (20:21)
[2021-01-10] MEDS: IOPAMIDOL CONTRAST (ORAL USE) VIAL PO PRN ×2 (20:40→21:22)
[2021-01-10] MEDS ORDERED: HEPARIN SODIUM,PORCINE/PF 5,000 UNIT/0.5 ML SYRINGE SQ SCH (21:00)
--- NOTE | 2021-01-10 21:06 | CONS ---
CONSULTATION CHIEF COMPLAINT: Abdominal pain. REASON FOR CONSULTATION: Advice regarding hypertension and hyperlipidemia and other medical issues, requested by Dr. Dangelo. HISTORY OF PRESENT ILLNESS: This 50-year-old woman with a past medical history of hypertension, hyperlipidemia, history of section, history of GERD, being followed by Dr. Isacc De La Rosa in the outpatient setting, was complaining of severe abdominal pain which started suddenly last night at 7:00 which was felt in the anterior part of chest which was persistent, rather increasing in intensity. Patient was unable to take a deep breath or move around, which caused increasing pain. The patient apparently had eaten some fries for dinner. The patient went to [facility], where a CT scan was apparently reported as normal, and the patient was discharged. Because of increasing pain, the patient came to [facility] and was admitted for evaluation and treatment. There is no history of any fever, rigor or chills at this time. An ultrasound abdomen was done which I reviewed personally; it showed evidence of hepatomegaly correlated with hepatocellular disease or hepatic steatosis. There is no history of any fever, rigor or chills at this time. PAST MEDICAL HISTORY: History of 2 sections, history of D and C, GERD, hypertension, hyperlipidemia. HOME MEDICATIONS: Irbesartan, Zoloft, omeprazole, Lopressor, fenofibrate, Lipitor. Doses are reviewed. ALLERGIES: LATEX. FAMILY HISTORY: No history of heart disease or strokes in the family. SOCIAL HISTORY: No history of smoking. No history of alcohol intake. REVIEW OF SYSTEMS: ENT: No diminished hearing. No diminished vision. CARDIOVASCULAR SYSTEM: No angina, palpitations. RESPIRATORY SYSTEM: As mentioned earlier. GI: As mentioned earlier. : No dysuria. NERVOUS SYSTEM: No numbness, weakness. ALLERGY/IMMUNOLOGY: No asthma or hay fever. MUSCULOSKELETAL: As mentioned earlier. HEMATOLOGY/ONCOLOGY: No history of anemia. ENDOCRINE: No history of diabetes or hypothyroidism. CONSTITUTIONAL: As mentioned earlier. DERMATOLOGY: Negative. RHEUMATOLOGY: Negative. PSYCHIATRY: As mentioned earlier. PHYSICAL EXAMINATION: Patient alert and oriented x3. Pulse is 91, blood pressure 157/79, respiration 18, temperature 98.8, pulse ox 94% on room air. HEENT: Conjunctivae normal. NECK: No jugular venous distention. CARDIOVASCULAR: S1, S2 muffled. RESPIRATION: Breath sounds diminished at the bases. A few scattered rhonchi. No crackles. ABDOMEN: Soft, rather tense. No guarding. No rigidity. No mass palpable. Mild tenderness in the upper abdomen. Bowel sounds diminished. No ascites. LEGS: No edema. No swelling. NERVOUS SYSTEM: Higher functions as mentioned earlier. Moves all 4 limbs. No focal motor or sensory deficit. LYMPHATICS: No lymph node palpable in neck, axillae or groin. SKIN: No ulcer, rash, bleeding. JOINTS: No active deforming arthropathy. LABS: WBC 11.3, neutrophils 9.9, lymphocytes are 0.9. Glucose 117. ASSESSMENT: 1. Acute severe upper abdominal pain for evaluation. Rule out cholelithiasis. Rule out peptic ulcer disease. Rule out acute abdomen. 2. Increased white count. 3. Mild lymphopenia and neutrophilic leukocytosis. 4. Increased random blood sugar. 5. History of gastroesophageal reflux disease. 6. Hypertension. 7. Hyperlipidemia. 9. History of section. 10.History of anxiety, depression. 12.History of carpal tunnel syndrome. 13.Obesity with body mass index of 38.5. 14.FULL CODE. RECOMMENDATIONS AND DISCUSSION: In this 50-year-old woman who presented with multiple complex medical issues, we will monitor the patient closely, continue the current medications, continue symptomatic treatment. We will repeat a CT scan of the abdomen and pelvis. Otherwise, I would also recommend a chest x-ray, basic labs, HIDA scan per Surgery. We will follow the patient closely with you. DVT prophylaxis. D-dimer. Patient may be asked to follow up with Dr. Isacc De La Rosa after discharge. Thank you, Dr. Dangelo, for letting us participate in the care of this patient. Discussed with the patient. See orders for further details. MMODL / IJN: [id number] / MTDD
[2021-01-10 21:18] LABS: Erythrocyte Sedimentation Rate 12 mm/hr (0-20)
--- NOTE | 2021-01-10 22:53 | CT ---
EXAMINATION TYPE: CT abdomen pelvis wo con DATE OF EXAM: 01/10/2021 COMPARISON: None HISTORY: abd pain CT DLP: 1259.40 mGycm Automated exposure control for dose reduction was used. TECHNIQUE: Helical acquisition of images was performed from the lung bases through the pelvis. FINDINGS: LUNG BASES: Bilateral lower lobe infiltrate. LIVER/GB: Liver reduced attenuation and prominent size correlate for hepatocellular disease, hepatic steatosis. PANCREAS: No significant abnormality is seen. SPLEEN: No significant abnormality is seen. ADRENALS: No significant abnormality is seen. KIDNEYS: No significant abnormality is seen. ADENOPATHY: None visualized. OSSEOUS STRUCTURES: Hypertrophic and degenerative changes spine. BOWEL: No significant abnormality is seen. OTHER: There is a small amount of fluid adjacent to the liver with mild induration of the fat along t he right lateral abdomen extending into the paracolic gutter and right adnexa. There is a large 15 cm area of lobulated mass likely representing an enlarged lobulated uterus with multiple uterine masses . Small amount of free fluid in the pelvis appear somewhat hyperdense may represent a hemorrhagic com ponent of fluid. Calcification within the suspected uterus may represent a calcified fibroid. Additio nal phleboliths in the pelvis are noted. [facility] there is mild induration of the fat in the right adnexa . Air in the subcutaneous tissues of the anterior right abdomen likely on the basis of recent injection correlate clinically. Atherosclerotic changes aorta with no aneurysm IMPRESSION: 1. Large mass in the pelvis likely representing enlarged uterus with probable uterine masses which ar e favored over tubo-ovarian etiology. Measures approximately 15 cm and there is small amount of fluid in the pelvis which is somewhat hyperdense could represent a small hemorrhagic component of fluid. Mild induration of the fat or inflammatory change in the right adnexa is seen which is nonspecific. M RI correlation is recommended to assess for fibroid uterus versus more aggressive etiologies includin g malignancy. Recommend correlation with CA 125 and OVA1 test. 2. Hepatic steatosis and hepatomegaly with a small amount of fluid adjacent to the liver 3. Small amount of fluid in the right lateral abdomen adjacent to the right colon likely is related t o is trace amount of ascites rather than mild colitis. Appendix is not seen correlate clinically to e xclude a mild colitis.
--- NOTE | 2021-01-10 23:07 | CT ---
EXAMINATION TYPE: CT angio chest DATE OF EXAM: 01/10/2021 10:43 PM COMPARISON: None HISTORY: r/u PE, shortness of breath CT DLP: 425 mGycm Automated exposure control for dose reduction was used. CONTRAST: CTA scan of the thorax is performed with IV Contrast, patient injected with 100 mL of Isovue 370, pul monary embolism protocol. . FINDINGS: LUNGS: There is no pneumothorax. Azygos lobe and fissure incidentally noted. There are bilateral area s of subsegmental infiltrate correlate for pneumonia. No pleural effusion. No pneumothorax. MEDIASTINUM: There is no central pulmonary embolism. There is suboptimal enhancement of secondary and distal branches. Cannot exclude a filling defect within the distal branches and distal pulmonary emb olism not excluded with particular attention to left lingular segment image 60. OTHER: There is enlarged and low attenuation correlate for hepatomegaly and hepatic stenosis or hepa tocellular disease. IMPRESSION: 1. Limited exam for assessment of pulmonary embolism due to artifact and suboptimal opacification. Ca nnot exclude a distal branch pulmonary embolism especially within the left upper lobe with suggestion of a small small filling defect within the left upper lobe segmental branch on axial image 60 and co chris image 81. Correlate clinically for pulmonary embolus. 2. Bilateral diffuse infiltrates correlate for pneumonia. 3. Hepatic steatosis and hepatomegaly.
[2021-01-10] MEDS ORDERED: HEPARIN SODIUM 1,000 UN/ML (10ML VL) IV PRN (23:54)
[2021-01-10] MEDS ORDERED: HEPARIN SODIUM 1,000 UN/ML (10ML VL) IV ONE (23:54)
[2021-01-11] MEDS: HYDROmorphone 1 MG/ML 1 ML SYRINGE IVP PRN ×4 (00:45→22:07)
[2021-01-11] MEDS: HEPARIN SOD,PORK IN 0.45% NACL 25,000 UNIT in 0.45% NACL 1 250ML.BAG IV SCH ×3 (00:48→23:31)
[2021-01-11] MEDS ORDERED: IPRATROPIUM-ALBUTEROL 3 ML NEB INHALATION PRN (04:32)
[2021-01-11] MEDS: SODIUM CHLORIDE 0.9% 1,000 ML IV SCH ×2 (05:57→15:31)
[2021-01-11] MEDS: IPRATROPIUM-ALBUTEROL 3 ML NEB INHALATION SCH ×3 (08:09→19:58)
[2021-01-11] MEDS ORDERED: NON FORMULARY DRUG (Irbesartan/Hydrochlorothiazide [Irbesartan-Hctz 300-12.5 Mg Tb] 1 EACH PO SCH (09:00)
[2021-01-11] MEDS ORDERED: PANTOPRAZOLE 40 MG TABLET PO SCH (09:00)
--- NOTE | 2021-01-11 09:18 | NM ---
EXAMINATION TYPE: NM hepatobiliary w CCK DATE OF EXAM: 01/11/2021 COMPARISON: CT and ultrasound from yesterday HISTORY: Right upper quadrant pain. Epigastric pain, reflux, and nausea. TECHNIQUE: After the intravenous administration of 4.8 mCi Tc 99m Mebrofenin hepatobiliary scintigrap hy is performed. Immediate images post injection. FINDINGS: There is overall diminished accumulation of tracer by the liver likely product of Fatty infiltration and/or underlying hepatocellular disease. The gallbladder is visualized within 30 minutes. The small bowel activity is noted within 20 minutes. At one hour CCK was administered, kade francesca was injected with 2.0 mcg of Kinevac, and gallbladder ejection fraction is calculated at 38 %, in the normal range. Therefore there is no scintigraphic evidence of cystic or common bile duct obst ruction to suggest acute cholecystitis or gallbladder dyskinesia. IMPRESSION: Ejection fraction is within normal limits.
[2021-01-11 10:03] LABS: Basophils % (A) 0 %; Eosinophils # (A) 0.2 k/uL (0-0.7); Eosinophils % (A) 2 %; HCT 38.4 % (34.0-46.0); HGB 12.4 gm/dL (11.4-16.0); Lymphocytes # (A) 0.7 k/uL (1.0-4.8); Lymphocytes % (A) 7 %; MCH 27.7 pg (25.0-35.0); MCHC 32.4 g/dL (31.0-37.0); MCV 85.6 fL (80.0-100.0); Mean Platelet Volume 9.2; Monocytes # (A) 0.3 k/uL (0-1.0); Monocytes % (A) 3 %; Neutrophils # (A) 8.2 k/uL (1.3-7.7); Neutrophils % (A) 87 %; Platelet Count 156 k/uL (150-450); RBC 4.49 m/uL (3.80-5.40); RDW 13.1 % (11.5-15.5); WBC 9.5 k/uL (3.8-10.6)
[2021-01-11 10:20] LABS: ALT 26 U/L (4-34); AST 44 U/L (14-36); African American GFR (CKD) >90 (>60 ml/min/1.73 sqM); Albumin 4.1 g/dL (3.5-5.0); Alkaline Phosphatase 89 U/L (38-126); Anion Gap 9 mmol/L; Blood Urea Nitrogen 5 mg/dL (7-17); Carbon Dioxide 22 mmol/L (22-30); Chloride 107 mmol/L (98-107); Glucose 99 mg/dL (74-99); Non-African American GFR(CKD) >90 (>60 ml/min/1.73 sqM); Sodium 138 mmol/L (137-145); Total Bilirubin 1.3 mg/dL (0.2-1.3); Total Protein 7.2 g/dL (6.3-8.2)
[2021-01-11 10:26] LABS: Potassium 3.6 mmol/L (3.5-5.1)
[2021-01-11] MEDS: FENOFIBRATE 160 MG PO SCH (10:50)
[2021-01-11] MEDS: LOSARTAN 50 MG TAB PO SCH (10:50)
[2021-01-11] MEDS: METOPROLOL TARTRATE 50 MG TAB PO SCH ×2 (10:51→21:55)
[2021-01-11] MEDS: SERTRALINE 25 MG TAB PO SCH (10:51)
[2021-01-11] MEDS: PANTOPRAZOLE 40 MG/10 ML VIAL IV SCH ×2 (11:00→21:56)
[2021-01-11] MEDS: ACETAMINOPHEN TAB 325 MG TAB PO PRN ×2 (11:00→15:45)
--- NOTE | 2021-01-11 13:35 | P.OBCN ---
History of Present Illness Consult date: 01/11/21 Reason for consult: pelvic mass (fibroid uterus) Chief complaint: abdominal and pelvic pain History of present illness: 50 year old presented to the hospital a few days ago with complaints of lower abdominal pain, more on the right. She has not had periods for the last 2 years as she had a novasure ablation. At that time her uterus was sounded to 12 cm and she did have notable fibroids. This pain episode was sudden onset and then pain continued but is now much more dull and achy. no bleeding or discharge and no change in bowel habits. Review of Systems All systems: negative Constitutional: Denies chills, Denies fever Eyes: denies blurred vision, denies pain Ears, nose, mouth and throat: Denies headache, Denies sore throat Cardiovascular: Denies chest pain, Denies shortness of breath Respiratory: Denies cough Gastrointestinal: Denies abdominal pain, Denies diarrhea, Denies nausea, Denies vomiting Genitourinary: Denies dysuria, Denies hematuria Musculoskeletal: Denies myalgias Integumentary: Denies pruritus, Denies rash Neurological: Denies numbness, Denies weakness Psychiatric: Denies anxiety, Denies depression Endocrine: Denies fatigue, Denies weight change Past Medical History Past Medical History: GERD/Reflux, Hyperlipidemia, Hypertension History of Any Multi-Drug Resistant Organisms: None Reported Past Surgical History: Section Additional Past Surgical History / Comment(s): D&C. LIPOMA REMOVAL. CARPAL TUNNEL RELEASE Past Anesthesia/Blood Transfusion Reactions: No Reported Reaction Past Psychological History: Anxiety, Depression Smoking Status: Never smoker Past Alcohol Use History: Occasional Past Drug Use History: None Reported - Past Family History Mother Family Medical History: No Reported History Father Family Medical History: No Reported History Medications and Allergies Home Medications Medication Instructions Recorded Confirmed Type Atorvastatin [Lipitor] 20 mg PO DAILY 03/11/18 01/10/21 History Fenofibrate Nanocrystallized 145 mg PO DAILY 03/11/18 01/10/21 History [Fenofibrate] Metoprolol Tartrate [Lopressor] 50 mg PO BID 03/11/18 01/10/21 History Omeprazole 20 mg PO DAILY 03/11/18 01/10/21 History Sertraline [Zoloft] 75 mg PO DAILY 03/11/18 01/10/21 History Irbesartan/Hydrochlorothiazide 1 tab PO DAILY 01/10/21 01/10/21 History [Irbesartan-Hctz 300-12.5 mg Tb] Allergies Allergy/AdvReac Type Severity Reaction Status Date / Time latex Allergy Rash/Hives Verified 01/10/21 11:11 Exam Osteopathic Statement: *. No significant issues noted on an osteopathic structural exam other than those noted in the History and Physical/Consult. Vital Signs Temp Pulse Pulse Resp BP Pulse Ox 01/11/21 11:53 76 01/11/21 11:34 76 01/11/21 05:09 74 01/11/21 05:01 72 01/11/21 03:58 98.1 F 73 20 157/91 95 01/11/21 00:15 98.5 F 85 18 153/85 94 L 01/10/21 23:25 98.7 F 76 18 145/85 91 L 01/10/21 20:00 18 01/10/21 19:50 98.3 F 82 18 148/74 93 L 01/10/21 14:55 98.8 F 91 18 157/79 94 L Intake and Output 01/10/21 01/11/21 01/11/21 22:59 06:59 14:59 Intake Total 995 210.276 Balance 995 210.276 Intake: Intake, IV Titration 455 210.276 Amount Heparin Sod,Pork in 0.45% 210.276 NaCl 25,000 unit In 0.45 % NaCl 1 250ml.bag @ 18 UNITS/KG/HR 19.44 mls/hr IV .[id number] [facility] Rx#: [id number] Sodium Chloride 0.9% 1, 455 000 ml @ 130 mls/hr IV . [id number] [facility] Rx#:[id number] Oral 540 Other: Voiding Method Toilet # Voids 1 Weight 108 kg 108.4 kg HEart: RRR Lungs: CTAB Abdomen: firm in pelvis just up to underneath the umbilicus. tender to palpation Results Result Diagrams: 01/11/21 09:48 01/11/21 09:48 Abnormal Lab Results - Last 24 Hours (Table) 01/10/21 01/10/21 01/10/21 Range/Units 18:55 19:00 19:00 WBC 12.4 H (3.8-10.6) k/uL Neutrophils # 10.9 H (1.3-7.7) k/uL Lymphocytes # 0.8 L (1.0-4.8) k/uL APTT (22.0-30.0) sec D-Dimer 2.18 H (<0.60) mg/L FEU Sodium (137-145) mmol/L BUN (7-17) mg/dL Creatinine (0.52-1.04) mg/dL Glucose (74-99) mg/dL AST (14-36) U/L C-Reactive Protein (<1.0) mg/dL Urine Opiates Screen Detected H (NotDetected) U Benzodiazepines Scrn Detected H (NotDetected) 01/10/21 01/11/21 01/11/21 Range/Units 19:00 09:48 09:48 WBC (3.8-10.6) k/uL Neutrophils # 8.2 H (1.3-7.7) k/uL Lymphocytes # 0.7 L (1.0-4.8) k/uL APTT (22.0-30.0) sec D-Dimer (<0.60) mg/L FEU Sodium 136 L (137-145) mmol/L BUN 5 L (7-17) mg/dL Creatinine 0.49 L (0.52-1.04) mg/dL Glucose 111 H (74-99) mg/dL AST 44 H (14-36) U/L C-Reactive Protein 14.3 H (<1.0) mg/dL Urine Opiates Screen (NotDetected) U Benzodiazepines Scrn (NotDetected) 01/11/21 Range/Units 09:48 WBC (3.8-10.6) k/uL Neutrophils # (1.3-7.7) k/uL Lymphocytes # (1.0-4.8) k/uL APTT 40.3 H (22.0-30.0) sec D-Dimer (<0.60) mg/L FEU Sodium (137-145) mmol/L BUN (7-17) mg/dL Creatinine (0.52-1.04) mg/dL Glucose (74-99) mg/dL AST (14-36) U/L C-Reactive Protein (<1.0) mg/dL Urine Opiates Screen (NotDetected) U Benzodiazepines Scrn (NotDetected) Assessment and Plan Assessment: Fibroid uterus abdominal pain pelvic pain Plan: 1. I would like to get an US of her pelvis to look at the fibroids. will likely need another in 3-6 months to see if there is growth. THe pain could have been related to her uterus but I would expect more discharge or blood with this. Could have been related to some ovarian cyst or fibroids or hematometria. Will follow and discuss again with pt after US. Time with Patient: Greater than 30
--- NOTE | 2021-01-11 14:04 | P.PN ---
Subjective Progress Note Date: 01/11/21 This is a 50-year-old female who was recently admitted with surgical services for severe abdominal pain and is being closely monitored. We are consulted for medical management as patient has a past medical history of hypertension, hyperlipidemia, GERD and follows with Dr. De La Rosa in the outpatient setting. Patient continues to have abdominal discomfort and was also having some extreme shortness of breath and a d-dimer was ordered showing 2.[address] abdomen chest and pelvis were done as well and cannot exclude a pulmonary embolism and IV heparin has been started. Patient was started on 2 L via nasal cannula for the shortness of breath. Multiple medical consultations including pulmonary and onc ology along with gynecology consulted and pending. Labs: White blood count is 9.5, hemoglobin is 12.4, platelets are 156, sodium is 138, potassium is 3.6, creatinine is 0.5 to, total bilirubin is 1.3, AST mildly elevated at 44, ALT is 26, alkaline phosphatase is 89 Review of systems: Constitutional: No reports of fatigue, fever, or chills Cardiovascular: No reports of chest pain or palpitations Respiratory: rePorts some intermittent shortness of breath GI: No reports of nausea, vomiting, or diarrhea, reports continued abdominal pain and tenderness : No reports of dysuria or retention Neurovascular: No reports of weakness or numbness All medications have been reviewed Active Medications Acetaminophen (Acetaminophen Tab 325 Mg Tab) 650 mg PO Q6HR PRN PRN Reason: Fever and/ or Pain Last Admin: 01/11/21 11:00 Dose: 650 mg Documented by: Hydrocodone Bitart/Acetaminophen (Hydrocodone/Apap 5-325mg 1 Each Tab) 1 each PO Q4HR PRN PRN Reason: Moderate Pain Last Admin: 01/10/21 17:38 Dose: 1 each Documented by: Albuterol/Ipratropium (Ipratropium-Albuterol 3 Ml Neb) 3 ml INHALATION RT-TID PRN PRN Reason: Shortness Of Breath Or Wheezing Last Admin: 01/11/21 04:59 Dose: 3 ml Documented by: Albuterol/Ipratropium (Ipratropium-Albuterol 3 Ml Neb) 3 ml INHALATION RT-TID [facility] Last Admin: 01/11/21 11:34 Dose: 3 ml Documented by: Atorvastatin Calcium (Atorvastatin 20 Mg Tab) 20 mg PO DAILY [facility] Fenofibrate (Lofibra 160mg Tab) 160 mg PO DAILY [facility] Last Admin: 01/11/21 10:50 Dose: 160 mg Documented by: Heparin Sodium (Porcine) (Heparin Sodium 1,000 Un/Ml (10ml Vl)) 0 unit IV PER PROTOCOL PRN; Protocol PRN Reason: Low PTT Hydrochlorothiazide (Hydrochlorothiazide 12.5 Mg Cap) 12.5 mg PO DAILY [facility] Hydromorphone HCl (Hydromorphone 1 Mg/Ml 1 Ml Syringe) 1 mg IVP Q3HR PRN PRN Reason: Severe Pain Last Admin: 01/11/21 09:27 Dose: 1 mg Documented by: Sodium Chloride (Saline 0.9%) 1,000 mls @ 130 mls/hr IV .[id number] [facility] Last Admin: 01/11/21 05:57 Dose: Not Given Documented by: Heparin Sodium/Sodium Chloride (25,000 unit/ Sodium Chloride) 250 mls @ 19.44 mls/hr IV .[id number] [facility]; Protocol Last Titration: 01/11/21 11:37 Dose: 20 units/kg/hr, 21.6 mls/hr Documented by: Losartan Potassium (Losartan 50 Mg Tab) 100 mg PO DAILY [facility] Last Admin: 01/11/21 10:50 Dose: 100 mg Documented by: Metoprolol Tartrate (Metoprolol Tartrate 50 Mg Tab) 50 mg PO BID [facility] Last Admin: 01/11/21 10:51 Dose: 50 mg Documented by: Naloxone HCl (Naloxone 0.4 Mg/Ml 1 Ml Vial) 0.2 mg IV Q2M PRN PRN Reason: Opioid Reversal Ondansetron HCl (Ondansetron 4 Mg/2 Ml Vial) 4 mg IVP Q6HR PRN PRN Reason: Nausea And Vomiting Last Admin: 01/10/21 20:21 Dose: 4 mg Documented by: Pantoprazole Sodium (Pantoprazole 40 Mg/10 Ml Vial) 40 mg IV BID [facility] Last Admin: 01/11/21 11:00 Dose: 40 mg Documented by: Sertraline HCl (Sertraline 25 Mg Tab) 75 mg PO DAILY [facility] Last Admin: 01/11/21 10:51 Dose: 75 mg Documented by: Physical exam: Gen: This is a 50-year-old female awake, alert and oriented 3, well-developed, well-nourished. Temp is 98.1F, pulse is 73, respirations are 20, blood pressure is 157/91, oxygen saturation is 95% on 2 L via nasal cannula. HEENT: Head is atraumatic, normocephalic. Pupils equal, round. Sclerae is a nicteric. NECK: Supple. No JVD. No lymphadenopathy. No thyromegaly. LUNGS: Diminished breath sounds bilaterally with a few rhonchi noted. No intercostal retractions. HEART: S1, S2 are muffled ABDOMEN: Soft. Obese. Bowel sounds are present. No masses. Tenderness noted on palpation of the upper right and left quadrants. EXTREMITIES: No pedal edema. No calf tenderness. NEUROLOGICAL: Patient is awake, alert and oriented x3. Cranial nerves 2 through 12 are grossly intact. Assessment: Acute severe upper abdominal pain for evaluation, rule out cholelithiasis, rule out peptic ulcer disease, rule out acute abdomen Shortness of breath, possible PE and unable to exclude on CT Elevated d-dimer Possible Large pelvic mass as noted in the CT Increased white blood count Mild lymphopenia and neutrophilic leukocytosis Increased random blood sugar next line history of gastroesophageal reflux dis ease and hypertension neck line hyperlipidemia History of section [place] history of anxiety home depression next line history of carpal tunnel syndrome Obesity with body mass index of 38.5 Full code Plan: Recommend to continue with current medications, management, and symptomatic treatment. Patient transferred to selected unit for close monitoring as patient's d-dimer was elevated and CT abdomen, pelvis, CTA was done showing a limited exam for assessment of pulmonary embolism due to artifact and suboptimal opacification and cannot exclude a distal branch pulmonary embolism especially within the left upper lobe with suggestion of a small filling defect within the left upper lobe segmental branch with bilateral diffuse infiltrates to correlate for pneumonia with hepatic steatosis and hepatomegaly. CT abdomen and pelvis shows a large mass in the pelvis likely representing an enlarged uterus with probable uterine masses which are favored over tubo-ovarian etiology that measu re approximately 15 cm with a small amount of fluid in the pelvis which is somewhat hyperdense that could represent a small hemorrhagic component of fluid with mild induration of the fat and inflammatory changes in the right adnexa which is nonspecific and also a small amount of fluid in the right lateral abdomen adjacent to the right colon likely related to a trace amount of ascites rather than mild colitis appendix not seen. MRI recommended. Pulmonary and gynecology consulted and pending at this time. Due to multiple complex medical issues, prognosis is guarded. Further recommendations to follow based on the clinical course of the patient. Thank you for this consultation and we'll con chadue to follow along with you. Objective - Vital Signs Vital signs: Vital Signs Temp 98.1 F 01/11/21 03:58 Pulse 76 01/11/21 11:53 Resp 20 01/11/21 03:58 BP 157/91 01/11/21 03:58 Pulse Ox 95 01/11/21 03:58 Intake & Output 01/10/21 01/11/21 01/11/21 18:59 06:59 18:59 Intake Total 995 210.276 Balance 995 210.276 Weight 108 kg 108.4 kg Intake: Intake, IV Titration 455 210.276 Amount Heparin Sod,Pork in 0.45% 210.276 NaCl 25,000 unit In 0.45 % NaCl 1 250ml.bag @ 18 UNITS/KG/HR 19.44 mls/hr IV .[id number] [facility] Rx#: [id number] Sodium Chloride 0.9% 1, 455 000 ml @ 130 mls/hr IV . Q7H42M [facility] Rx#:[id number] Oral 540 Other: Voiding Method Toilet # Voids 1 - Labs CBC & Chem 7: 01/11/21 09:48 01/11/21 09:48 Labs: Abnormal Lab Results - Last 24 Hours (Table) 01/10/21 01/10/21 01/10/21 Range/Units 18:55 19:00 19:00 WBC 12.4 H (3.8-10.6) k/uL Neutrophils # 10.9 H (1.3-7.7) k/uL Lymphocytes # 0.8 L (1.0-4.8) k/uL APTT (22.0-30.0) sec D-Dimer 2.18 H (<0.60) mg/L FEU Sodium (137-145) mmol/L BUN (7-17) mg/dL Creatinine (0.52-1.04) mg/dL Glucose (74-99) mg/dL AST (14-36) U/L C-Reactive Protein (<1.0) mg/dL Urine Opiates Screen Detected H (NotDetected) U Benzodiazepines Scrn Detected H (NotDetected) 01/10/21 01/11/21 01/11/21 Range/Units 19:00 09:48 09:48 WBC (3.8-10.6) k/uL Neutrophils # 8.2 H (1.3-7.7) k/uL Lymphocytes # 0.7 L (1.0-4.8) k/uL APTT (22.0-30.0) sec D-Dimer (<0.60) mg/L FEU Sodium 136 L (137-145) mmol/L BUN 5 L (7-17) mg/dL Creatinine 0.49 L (0.52-1.04) mg/dL Glucose 111 H (74-99) mg/dL AST 44 H (14-36) U/L C-Reactive Protein 14.3 H (<1.0) mg/dL Urine Opiates Screen (NotDetected) U Benzodiazepines Scrn (NotDetected) 01/11/21 Range/Units 09:48 WBC (3.8-10.6) k/uL Neutrophils # (1.3-7.7) k/uL Lymphocytes # (1.0-4.8) k/uL APTT 40.3 H (22.0-30.0) sec D-Dimer (<0.60) mg/L FEU Sodium (137-145) mmol/L BUN (7-17) mg/dL Creatinine (0.52-1.04) mg/dL Glucose (74-99) mg/dL AST (14-36) U/L C-Reactive Protein (<1.0) mg/dL Urine Opiates Screen (NotDetected) U Benzodiazepines Scrn (NotDetected)
--- NOTE | 2021-01-11 14:30 | P.PN ---
Subjective Progress Note Date: 01/11/21 CHIEF COMPLAINT: Abdominal pain HISTORY OF PRESENT ILLNESS: Patient complains still of right upper quadrant abdominal pain. She did have a HIDA scan completed showing ejection fraction within normal limits at 38%. Patient's EF is low normal reading. Patient also complaining of lower abdominal pain. Their concerns of uterine fibroids noted on CAT scan of abdomen. Patient evaluated by INSURANCE CLAIM REPRESENTATIVE service they've ordered an ultrasound of the abdomen. Patient transferred to the cardiac floor due to questionable pulmonary embolus. She is on IV heparin. Pulmonary service will be to evaluate. She did have elevated d-dimer. Patient does complain of nausea. Afebrile. WBC is normal at 9.5 Hgb 12.4 sodium 138 potassium 3.6 creatinine 0.52 total bili 1.3 AST 44 ALT 26 alk phos 89 Patient seen and examined with Dr. lacye PHYSICAL EXAM: VITAL SIGNS: Reviewed. GENERAL: Well-developed in no acute distress. HEENT: No sclera icterus. Extraocular movements grossly intact. Moist buccal mucosa. Head is atraumatic, normocephalic. ABDOMEN: Soft. Nondistended. Tenderness with palpation of the right upper quadrant and lower abdominal tenderness NEUROLOGIC: Alert and oriented. Cranial nerves II through XII grossly intact. ASSESSMENT: 1. Abdominal pain 2. Chronic cholecystitis 3. Possible Uterine fibroids with uterine mass noted on computed tomography scan 4. Possible PE being evaluated by pulmonary service PLAN: -Possible outpatient laparoscopic cholecystectomy -Continue low-fat diet -Heplock IV fluids -Patient being evaluated by INSURANCE CLAIM REPRESENTATIVE service regarding uterine mass and possible ut erine fibroids -Pulmonary service evaluate patient regarding possible PE Physician Java Android Developer note has been reviewed by physician. Signing provider agrees with the documented findings, assessment, and plan of care. Objective - Vital Signs Vital signs: Vital Signs Temp 98.1 F 01/11/21 03:58 Pulse 76 01/11/21 11:53 Resp 20 01/11/21 03:58 BP 157/91 01/11/21 03:58 Pulse Ox 95 01/11/21 03:58 Intake & Output 01/10/21 01/11/21 01/11/21 18:59 06:59 18:59 Intake Total 995 210.276 Balance 995 210.276 Weight 108 kg 108.4 kg Intake: Intake, IV Titration 455 210.276 Amount Heparin Sod,Pork in 0.45% 210.276 NaCl 25,000 unit In 0.45 % NaCl 1 250ml.bag @ 18 UNITS/KG/HR 19.44 mls/hr IV .[id number] [facility] Rx#: [id number] Sodium Chloride 0.9% 1, 455 000 ml @ 130 mls/hr IV . Q7H42M [facility] Rx#:[id number] Oral 540 Other: Voiding Method Toilet # Voids 1 - Labs CBC & Chem 7: 01/11/21 09:48 01/11/21 09:48 Labs: Abnormal Lab Results - Last 24 Hours (Table) 01/10/21 01/10/21 01/10/21 Range/Units 18:55 19:00 19:00 WBC 12.4 H (3.8-10.6) k/uL Neutrophils # 10.9 H (1.3-7.7) k/uL Lymphocytes # 0.8 L (1.0-4.8) k/uL APTT (22.0-30.0) sec D-Dimer 2.18 H (<0.60) mg/L FEU Sodium (137-145) mmol/L BUN (7-17) mg/dL Creatinine (0.52-1.04) mg/dL Glucose (74-99) mg/dL AST (14-36) U/L C-Reactive Protein (<1.0) mg/dL Urine Opiates Screen Detected H (NotDetected) U Benzodiazepines Scrn Detected H (NotDetected) 01/10/21 01/11/21 01/11/21 Range/Units 19:00 09:48 09:48 WBC (3.8-10.6) k/uL Neutrophils # 8.2 H (1.3-7.7) k/uL Lymphocytes # 0.7 L (1.0-4.8) k/uL APTT (22.0-30.0) sec D-Dimer (<0.60) mg/L FEU Sodium 136 L (137-145) mmol/L BUN 5 L (7-17) mg/dL Creatinine 0.49 L (0.52-1.04) mg/dL Glucose 111 H (74-99) mg/dL AST 44 H (14-36) U/L C-Reactive Protein 14.3 H (<1.0) mg/dL Urine Opiates Screen (NotDetected) U Benzodiazepines Scrn (NotDetected) 01/11/21 Range/Units 09:48 WBC (3.8-10.6) k/uL Neutrophils # (1.3-7.7) k/uL Lymphocytes # (1.0-4.8) k/uL APTT 40.3 H (22.0-30.0) sec D-Dimer (<0.60) mg/L FEU Sodium (137-145) mmol/L BUN (7-17) mg/dL Creatinine (0.52-1.04) mg/dL Glucose (74-99) mg/dL AST (14-36) U/L C-Reactive Protein (<1.0) mg/dL Urine Opiates Screen (NotDetected) U Benzodiazepines Scrn (NotDetected)
--- NOTE | 2021-01-11 14:44 | P.CNPUL ---
History of Present Illness Consult date: 01/11/21 Reason for consult: dyspnea Chief complaint: Abdominal pain History of present illness: This is a 50-year-old female with history of hypertension, GERD, dyslipidemia, patient presented to the ER last night with relatively sudden onset of right upper quadrant abdominal pain. Pain was noted after she had some fast food serbian fries, patient was quite severe, and she was seen at [facility]. CT of the abdomen and pelvis as well as ultrasound and laboratory studies were done, patient was discharged home without any pain medication. She received Toradol and morphine, she also received Dilaudid with mild improvement of her symptoms. Continued to have pain at home, hence she returned via EMS, received morphine and route to the hospital. Patient denies any previous history of abdominal pain, she had a bit of nausea but no vomiting. She had no change in bowel habits. Patient was admitted for further evaluation of her abdominal pain. Hence admission, patient had a bit of shortness of br eath, hence a d-dimer was noted to be a bit elevated, and she underwent a CT angiogram of the chest. As CT angiogram is very poor quality, 8 was basically a limited exam. Suboptimal opacification noted in the pulmonary vasculature. Nonetheless the radiologist felt that he could not exclude a pulmonary embolus in the distal branch in the left upper lobe although the quality of the scan was basically very poor. Today I was asked to see her on consultation, and the patient denies any shortness of breath, no cough no wheezing no chest pain. My index of suspicion for pulmonary embolism is rather low based on the history. And I strongly believe that the CT of the chest itself is very poor quality. And I did not feel it could be diagnostic. Hence after evaluating the patient I recommended a Doppler of the lower extremities also recommended a VQ scan. If the findings on the VQ scan correlate with the findings noted on the CT of the chest, then I would consider that as a positive test otherwise clinically the patient does not have thromboembolic disease. In the meantime the patient is on heparin. Hepatobiliary scan was negative. CT of the abdomen and pelvis showed a large mass in the pelvis likely representing a large uterus with possible uterine masses. And the patient was seen by gynecology, and the recommendation is to do ultrasound of the pelvis. And this is pending. Again pulmonary-barrow the patient has no symptoms whatsoever today. I even had the patient walk in t he room for a couple of minutes, and she did not experience any shortness of breath Review of Systems Constitutional: Negative HEENT: Negative Pulmonary: As noted in HPI Cardiac: Negative GI: As noted in HPI Genitourinary: Negative Muscular skeletal: Negative Skin: Negative Neuropsych: Negative hematologic: Negative Musculoskeletal: Negative Endocrine: Negative Past Medical History Past Medical History: GERD/Reflux, Hyperlipidemia, Hypertension Additional Past Medical History / Comment(s): heavy periods History of Any Multi-Drug Resistant Organisms: None Reported Past Surgical History: Section Additional Past Surgical History / Comment(s): D&C. LIPOMA REMOVAL. CARPAL TUNNEL RELEASE Past Anesthesia/Blood Transfusion Reactions: No Reported Reaction Past Psychological History: Anxiety, Depression Smoking Status: Never smoker Past Alcohol Use History: Occasional Past Drug Use History: None Reported - Past Family History Mother Family Medical History: No Reported History Father Family Medical History: No Reported History Medications and Allergies Home Medications Medication Instructions Recorded Confirmed Type Atorvastatin [Lipitor] 20 mg PO DAILY 03/11/18 01/10/21 History Fenofibrate Nanocrystallized 145 mg PO DAILY 03/11/18 01/10/21 History [Fenofibrate] Metoprolol Tartrate [Lopressor] 50 mg PO BID 03/11/18 01/10/21 History Omeprazole 20 mg PO DAILY 03/11/18 01/10/21 History Sertraline [Zoloft] 75 mg PO DAILY 03/11/18 01/10/21 History Irbesartan/Hydrochlorothiazide 1 tab PO DAILY 01/10/21 01/10/21 History [Irbesartan-Hctz 300-12.5 mg Tb] Allergies Allergy/AdvReac Type Severity Reaction Status Date / Time latex Allergy Rash/Hives Verified 01/10/21 11:11 Physical Exam Vitals: Vital Signs Temp Pulse Pulse Resp BP Pulse Ox 01/11/21 11:53 76 01/11/21 11:34 76 01/11/21 05:09 74 01/11/21 05:01 72 01/11/21 03:58 98.1 F 73 20 157/91 95 01/11/21 00:15 98.5 F 85 18 153/85 94 L 01/10/21 23:25 98.7 F 76 18 145/85 91 L 01/10/21 20:00 18 01/10/21 19:50 98.3 F 82 18 148/74 93 L 01/10/21 14:55 98.8 F 91 18 157/79 94 L Intake and Output 01/10/21 01/11/21 01/11/21 22:59 06:59 14:59 Intake Total 995 210.276 Balance 995 210.276 Intake: Intake, IV Titration 455 210.276 Amount Heparin Sod,Pork in 0.45% 210.276 NaCl 25,000 unit In 0.45 % NaCl 1 250ml.bag @ 18 UNITS/KG/HR 19.44 mls/hr IV .[id number] [facility] Rx#: [id number] Sodium Chloride 0.9% 1, 455 000 ml @ 130 mls/hr IV . Q7H42M [facility] Rx#:[id number] Oral 540 Other: Voiding Method Toilet # Voids 1 Weight 108 kg 108.4 kg Physical Exam: Revealed 51-year-old female in no distress Head: Atraumatic, normocephalic. HEENT:[Neck is supple.] [No neck masses.] [No thyromegaly.] [No JVD.] Chest: [Clear throughout, no crackles, no rhonchi, no wheezes.] Cardiac Exam: [Normal S1 and S2, no S3 gallop, no murmur.] Abdomen: [Soft, mild tenderness in the lower abdomen, no rebound no guarding. Positive bowel sounds. Extremities: [No clubbing, no edema, no cyanosis.] Neurological Exam: [No focal neurologic deficit. Psychiatric: Normal mood affect and normal mental status examination. Skin: No rashes.] Results - Laboratory Findings CBC and BMP: 01/11/21 09:48 01/11/21 09:48 PT/INR, D-dimer D-Dimer 2.18 mg/L FEU (<0.60) H 01/10/21 19:00 Abnormal lab findings: Abnormal Labs 01/10/21 01/10/21 01/10/21 09:51 09:51 09:51 WBC 11.3 H Neutrophils # 9.9 H Lymphocytes # 0.9 L APTT D-Dimer Sodium BUN Creatinine 0.50 L Glucose 117 H AST C-Reactive Protein Urine Appearance Cloudy H Urine Blood Moderate H Urine Bacteria Moderate H Urine Opiates Screen U Benzodiazepines Scrn 01/10/21 01/10/21 01/10/21 18:55 19:00 19:00 WBC 12.4 H Neutrophils # 10.9 H Lymphocytes # 0.8 L APTT D-Dimer 2.18 H Sodium BUN Creatinine Glucose AST C-Reactive Protein Urine Appearance Urine Blood Urine Bacteria Urine Opiates Screen Detected H U Benzodiazepines Scrn Detected H 01/10/21 01/11/21 01/11/21 19:00 09:48 09:48 WBC Neutrophils # 8.2 H Lymphocytes # 0.7 L APTT D-Dimer Sodium 136 L BUN 5 L Creatinine 0.49 L Glucose 111 H AST 44 H C-Reactive Protein 14.3 H Urine Appearance Urine Blood Urine Bacteria Urine Opiates Screen U Benzodiazepines Scrn 01/11/21 09:48 WBC Neutrophils # Lymphocytes # APTT 40.3 H D-Dimer Sodium BUN Creatinine Glucose AST C-Reactive Protein Urine Appearance Urine Blood Urine Bacteria Urine Opiates Screen U Benzodiazepines Scrn - Diagnostic Findings CT scan - chest: image reviewed (As noted in HPI,) Assessment and Plan Assessment: Impression: Acute abdominal pain with pelvic mass, being evaluated by general surgery and by gynecology. Transient shortness of breath, resolved, strongly doubt thromboembolic disease. Abnormal CT angiogram of the chest, however the quality of the angiogram is extremely poor. History of hypertension Dyslipidemia History of depression Recommendation: Will recommend bilateral venous Doppler Will recommend a VQ scan, and if both are negative would recommend stopping h eparin Continue workup for abdominal pain. We will continue to follow. Time with Patient: Greater than 30
[2021-01-11] MEDS: ATORVASTATIN 20 MG TAB PO SCH (15:29)
--- NOTE | 2021-01-11 15:29 | US ---
EXAMINATION TYPE: US venous doppler duplex LE DATE OF EXAM: 01/11/2021 3:03 PM COMPARISON: NONE CLINICAL HISTORY: elevated d-dimer. On IV heparin drip. No leg redness and swelling SIDE PERFORMED: Bilateral TECHNIQUE: The lower extremity deep venous system is examined utilizing real time linear array sonog carlie with graded compression, doppler sonography and color-flow sonography. VESSELS IMAGED: Common Femoral Vein Deep Femoral Vein Greater Saphenous Vein * Femoral Vein Popliteal Vein Small Saphenous Vein * Proximal Calf Veins (* superficial vessels) There is normal flow, compressibility, vascular waveforms. Right Leg: Negative for DVT Left Leg: Negative for DVT IMPRESSION: No evidence of deep venous thrombosis within the lower extremities from the level of the knee centrally
--- NOTE | 2021-01-11 15:44 | US ---
EXAMINATION TYPE: US pelvic complete DATE OF EXAM: 01/11/2021 COMPARISON: CT 01/10/2021 CLINICAL HISTORY: pain, fibroid uterus. CT showed fibroid uterus. Hx endo ablation. TECHNIQUE: Transabdominal (TA). Transabdominal sonographic images of the pelvis were acquired. Transvaginal deferred due to enlarged uterus, penetration would be suboptimal Limited visualization Date of LMP: Unknown EXAM MEASUREMENTS: Uterus: 14.0 x 8.3 x 7.5 cm 1. Uterus: Anteverted Severely heterogenous. Enlarged. Lobulated appearance. Large lesion possi harsh pedunculated from fundal right uterus= 9.0 x 9.4 x 8.0 cm. 2. Endometrium: Not visualized due to bulky appearance of uterus. 3. Right Ovary: Obscured by overlying bowel gas 4. Left Ovary: Obscured by overlying bowel gas 5. Bilateral Adnexa: wnl 6. Posterior cul-de-sac: no free fluid IMPRESSION: Exam is somewhat limited, findings likely represent fibroid uterus.
[2021-01-11] MEDS: hydroCHLOROthiazide 12.5 MG CAP PO SCH (15:45)
--- NOTE | 2021-01-11 19:47 | P.CONS ---
History of Present Illness - Reason for Consult Consult date: 01/11/21 ?Malignancy Requesting physician: Shankar Theodore - Chief Complaint Abdominal Pain - History of Present Illness 50 year old female presenting with abdominal pain. CT abdomen and pelvis with large uterus and description of masses, SAFETY INSTRUCTOR has seen patient and has ordered ultrasound to further evaluate and differentiate fibroids versus more aggressive etiology. Oncology has been asked to evaluate regarding the concern of underlying malignancy Review of Systems All systems: negative Constitutional: Reports as per HPI Past Medical History Past Medical History: GERD/Reflux, Hyperlipidemia, Hypertension Additional Past Medical History / Comment(s): heavy periods History of Any Multi-Drug Resistant Organisms: None Reported Past Surgical History: Section Additional Past Surgical History / Comment(s): D&C. LIPOMA REMOVAL. CARPAL TUNNEL RELEASE Past Anesthesia/Blood Transfusion Reactions: No Reported Reaction Past Psychological History: Anxiety, Depression Smoking Status: Never smoker Past Alcohol Use History: Occasional Past Drug Use History: None Reported - Past Family History Mother Family Medical History: No Reported History Father Family Medical History: No Reported History Medications and Allergies Home Medications Medication Instructions Recorded Confirmed Type Atorvastatin [Lipitor] 20 mg PO DAILY 03/11/18 01/10/21 History Fenofibrate Nanocrystallized 145 mg PO DAILY 03/11/18 01/10/21 History [Fenofibrate] Metoprolol Tartrate [Lopressor] 50 mg PO BID 03/11/18 01/10/21 History Omeprazole 20 mg PO DAILY 03/11/18 01/10/21 History Sertraline [Zoloft] 75 mg PO DAILY 03/11/18 01/10/21 History Irbesartan/Hydrochlorothiazide 1 tab PO DAILY 01/10/21 01/10/21 History [Irbesartan-Hctz 300-12.5 mg Tb] Allergies Allergy/AdvReac Type Severity Reaction Status Date / Time latex Allergy Rash/Hives Verified 01/10/21 11:11 Physical Exam Vitals: Vital Signs Temp Pulse Pulse Resp BP Pulse Ox 01/11/21 11:53 76 01/11/21 11:34 76 01/11/21 05:09 74 01/11/21 05:01 72 01/11/21 03:58 98.1 F 73 20 157/91 95 01/11/21 00:15 98.5 F 85 18 153/85 94 L 01/10/21 23:25 98.7 F 76 18 145/85 91 L 01/10/21 20:00 18 01/10/21 19:50 98.3 F 82 18 148/74 93 L Intake and Output 01/11/21 01/11/21 01/11/21 06:59 14:59 22:59 Intake Total 210.276 Balance 210.276 Intake: Intake, IV Titration 210.276 Amount Heparin Sod,Pork in 0.45% 210.276 NaCl 25,000 unit In 0.45 % NaCl 1 250ml.bag @ 18 UNITS/KG/HR 19.44 mls/hr IV .[id number] [facility] Rx#: [id number] Other: Voiding Method Toilet Weight 108.4 kg - Constitutional General appearance: cooperative, no acute distress - EENT Eyes: EOMI, PERRLA ENT: NA/AT - Neck Neck: normal ROM - Respiratory Respiratory: bilateral: CTA - Cardiovascular Rhythm: regular - Gastrointestinal General gastrointestinal: soft - Integumentary Integumentary: pale - Neurologic Neurologic: CNII-XII intact - Musculoskeletal Musculoskeletal: generalized weakness - Psychiatric Psychiatric: A&O x's 3, appropriate affect, intact judgment & insight Results CBC & Chem 7: 01/11/21 09:48 01/11/21 09:48 Labs: Abnormal Lab Results - Last 24 Hours (Table) 01/10/21 01/10/21 01/10/21 Range/Units 18:55 19:00 19:00 WBC 12.4 H (3.8-10.6) k/uL Neutrophils # 10.9 H (1.3-7.7) k/uL Lymphocytes # 0.8 L (1.0-4.8) k/uL APTT (22.0-30.0) sec D-Dimer 2.18 H (<0.60) mg/L FEU Sodium (137-145) mmol/L BUN (7-17) mg/dL Creatinine (0.52-1.04) mg/dL Glucose (74-99) mg/dL AST (14-36) U/L C-Reactive Protein (<1.0) mg/dL Urine Opiates Screen Detected H (NotDetected) U Benzodiazepines Scrn Detected H (NotDetected) 01/10/21 01/11/21 01/11/21 Range/Units 19:00 09:48 09:48 WBC (3.8-10.6) k/uL Neutrophils # 8.2 H (1.3-7.7) k/uL Lymphocytes # 0.7 L (1.0-4.8) k/uL APTT (22.0-30.0) sec D-Dimer (<0.60) mg/L FEU Sodium 136 L (137-145) mmol/L BUN 5 L (7-17) mg/dL Creatinine 0.49 L (0.52-1.04) mg/dL Glucose 111 H (74-99) mg/dL AST 44 H (14-36) U/L C-Reactive Protein 14.3 H (<1.0) mg/dL Urine Opiates Screen (NotDetected) U Benzodiazepines Scrn (NotDetected) 01/11/21 Range/Units 09:48 WBC (3.8-10.6) k/uL Neutrophils # (1.3-7.7) k/uL Lymphocytes # (1.0-4.8) k/uL APTT 40.3 H (22.0-30.0) sec D-Dimer (<0.60) mg/L FEU Sodium (137-145) mmol/L BUN (7-17) mg/dL Creatinine (0.52-1.04) mg/dL Glucose (74-99) mg/dL AST (14-36) U/L C-Reactive Protein (<1.0) mg/dL Urine Opiates Screen (NotDetected) U Benzodiazepines Scrn (NotDetected) CT scan - abdomen: report reviewed CT scan - chest: report reviewed CT scan - pelvis: report reviewed Assessment and Plan (1) Uterine mass Current Visit: Yes Status: Acute Code(s): N85.8 - OTHER SPECIFIED NONINFLAMMATORY DISORDERS OF UTERUS SNOMED Code(s): 932073033770821 Plan: Await ultrasound of uterus for further identification of fibroids versus underlying malignancy Ca125 ordered
[2021-01-12] MEDS: ACETAMINOPHEN TAB 325 MG TAB PO PRN (05:06)
[2021-01-12] MEDS: IPRATROPIUM-ALBUTEROL 3 ML NEB INHALATION SCH ×3 (08:15→20:16)
[2021-01-12 08:39] LABS: Basophils % (A) 0 %; Eosinophils # (A) 0.3 k/uL (0-0.7); Eosinophils % (A) 4 %; HGB 12.1 gm/dL (11.4-16.0); Lymphocytes # (A) 0.8 k/uL (1.0-4.8); Lymphocytes % (A) 12 %; MCH 27.9 pg (25.0-35.0); MCHC 32.7 g/dL (31.0-37.0); MCV 85.3 fL (80.0-100.0); Mean Platelet Volume 9.4; Monocytes # (A) 0.2 k/uL (0-1.0); Monocytes % (A) 3 %; Neutrophils # (A) 5.7 k/uL (1.3-7.7); Neutrophils % (A) 80 %; Platelet Count 174 k/uL (150-450); RBC 4.34 m/uL (3.80-5.40); WBC 7.1 k/uL (3.8-10.6)
[2021-01-12 09:15] LABS: ALT 22 U/L (4-34); AST 28 U/L (14-36); African American GFR (CKD) >90 (>60 ml/min/1.73 sqM); Albumin 4.1 g/dL (3.5-5.0); Alkaline Phosphatase 68 U/L (38-126); Anion Gap 8 mmol/L; Blood Urea Nitrogen 6 mg/dL (7-17); Calcium 9.2 mg/dL (8.4-10.2); Carbon Dioxide 26 mmol/L (22-30); Chloride 105 mmol/L (98-107); Glucose 138 mg/dL (74-99); Non-African American GFR(CKD) >90 (>60 ml/min/1.73 sqM); Potassium 3.2 mmol/L (3.5-5.1); Sodium 139 mmol/L (137-145); Total Bilirubin 0.8 mg/dL (0.2-1.3); Total Protein 7.3 g/dL (6.3-8.2)
--- NOTE | 2021-01-12 09:36 | P.PN ---
Progress Note - Text Progress Note Date: 01/12/21 Patient seen and examined at bedside. She did have ultrasound done yesterday. Ultrasound showed that the uterus was 14 cm with multiple fibroids. There is also a 9 cm pedunculated fibroid off to the right. It is possible that her pain came from her uterus. Her pain is resolved at this moment. She has to undergo a VQ scan later today to rule out pulmonary embolus. If the PE study is negative I would advise discharged home and I can follow up with her outpatient in 2 weeks.
[2021-01-12] MEDS: HYDROcodone/APAP 5-325MG 1 EACH TAB PO PRN (10:02)
[2021-01-12] MEDS: ATORVASTATIN 20 MG TAB PO SCH (10:02)
[2021-01-12] MEDS: SERTRALINE 25 MG TAB PO SCH (10:02)
[2021-01-12] MEDS: LOSARTAN 50 MG TAB PO SCH (10:03)
[2021-01-12] MEDS: PANTOPRAZOLE 40 MG/10 ML VIAL IV SCH ×2 (10:03→21:08)
[2021-01-12] MEDS: hydroCHLOROthiazide 12.5 MG CAP PO SCH (10:03)
[2021-01-12] MEDS: FENOFIBRATE 160 MG PO SCH (10:03)
[2021-01-12] MEDS: METOPROLOL TARTRATE 50 MG TAB PO SCH ×2 (10:03→21:08)
--- NOTE | 2021-01-12 10:50 | P.PN ---
Progress Note - Text Progress Note Date: 01/12/21 Patient feels better. She states her pain is improved. She has no shortness of breath. The pouch is scheduled for a VQ scan later today. The patient states that she wants to go home with this is normal. On exam vital signs are stable. Abdomen soft. There is minimal right quadrant pain. Patient has been seen by gynecology. They recommended repeat ultrasound 6 month. Patient noted to have elevated CA-125. She will need further workup.
--- NOTE | 2021-01-12 12:20 | NM ---
EXAMINATION TYPE: NM pul vent and perfuse DATE OF EXAM: 01/12/2021 COMPARISON: Prior chest radiograph. Correlation CT 01/10/2021 HISTORY: 50-year-old female dyspnea, questionable PE. TECHNIQUE: Utilizing inhalation of 73.1 mCi Tc 99m DTPA aerosol and intravenous injection of 5.3 mCi of Tc 99m MAA, ventilation and perfusion images are acquired post injection in multiple projections. FINDINGS: Normal radiotracer distribution is noted in the lungs. There is no evidence of mismatched defects. IMPRESSION: Very low probability for pulmonary embolus.
--- NOTE | 2021-01-12 12:32 | P.PN ---
Subjective Progress Note Date: 01/12/21 Principal diagnosis: Abdominal pain and pelvic mass This is a 50-year-old female with history of hypertension, GERD, dyslipidemia, patient presented to the ER last night with relatively sudden onset of right upper quadrant abdominal pain. Pain was noted after she had some fast food niuean fries, patient was quite severe, and she was seen at [facility]. CT of the abdomen and pelvis as well as ultrasound and laboratory studies were done, patient was discharged home without any pain medication. She received Toradol and morphine, she also received Dilaudid with mild improvement of her symptoms. Continued to have pain at home, hence she returned via EMS, received morphine and route to the hospital. Patient denies any previous history of abdominal pain, she had a bit of nausea but no vomiting. She had no change in bowel habits. Patient was admitted for further evaluation of her abdominal pain. Hence admission, patient had a bit of shortness of breath, hence a d-dimer was noted to be a bit elevated, and she underwent a CT angiogram of the chest. As CT angiogram is very poor quality, 8 was basically a limited exam. Suboptimal opacification noted in the pulmonary vasculature. Nonetheless the radiologist felt that he could not exclude a pulmonary embolus in the distal branch in the left upper lobe although the quality of the scan was basically very poor. Today I was asked to see her on consultation, and the patient denies any shortness of breath, no cough no wheezing no chest pain. My index of suspicion for pulmonary embolism is rather low based on the history. And I strongly believe that the CT of the chest itself is very poor quality. And I did not feel it could be diagnostic. Hence after evaluating the patient I recommended a Doppler of the lower extremities also recommended a VQ scan. If the findings on the VQ scan correlate with the findings noted on the CT of the chest, then I would consider that as a positive test otherwise clinically the patient does not have thromboembolic disease. In the meantime the patient is on heparin. Hepatobiliary scan was negative. CT of the abdomen and pelvis showed a large mass in the pelvis likely representing a large uterus with possible uterine masses. And the patient was seen by gynecology, and the recommendation is to do ultrasound of the pelvis. And this is pending. Again pulmonary-barrow the patient has no symptoms whatsoever today. I even had the patient walk in the room for a couple of minutes, and she did not experience any shortness of breath Reevaluated today on 01/12/2021, patient is feeling well from the pulmonary perspective. No cough no shortness of breath no chest pain. However she continues to have intermittent episodes of abdominal pains being addressed by other physicians on the case. VQ scan was done today to rule out pulmonary embolism, patient has a very poor quality CT angiogram of the chest and the radiologist could not exclude a left upper lobe filling defect. However the VQ scan is basically showing low probability I believe we can safely discontinue her heparin, and no need for long-term anticoagulation. From my perspective I will clear the patient to go home if cleared by other consultants, and no need for further pulmonary follow-up. Objective - Vital Signs Vital signs: Vital Signs Temp 97.9 F 01/12/21 03:46 Pulse 82 01/12/21 08:25 Resp 16 01/12/21 08:25 BP 98/57 01/12/21 03:46 Pulse Ox 97 01/12/21 08:15 Intake & Output 01/11/21 01/12/21 01/12/21 18:59 06:59 18:59 Intake Total 1900.000 167.4 118 Balance 1900.000 167.4 118 Weight 107.8 kg Intake: Intake, IV Titration 1090.000 167.4 Amount Heparin Sod,Pork in 0.45% 250.000 167.4 NaCl 25,000 unit In 0.45 % NaCl 1 250ml.bag @ 18 UNITS/KG/HR 19.44 mls/hr IV .[id number] [facility] Rx#: [id number] Sodium Chloride 0.9% 1, 840 000 ml @ 130 mls/hr IV . [id number] [facility] Rx#:[id number] Oral 810 118 Other: Voiding Method Toilet Toilet # Voids 4 2 1 - Exam Physical Exam: Revealed 51-year-old female in no distress patient is on room a ir. Head: Atraumatic, normocephalic. HEENT:[Neck is supple.] [No neck masses.] [No thyromegaly.] [No JVD.] Chest: [Clear throughout, no crackles, no rhonchi, no wheezes.] Cardiac Exam: [Normal S1 and S2, no S3 gallop, no murmur.] Abdomen: [Soft, mild tenderness in the lower abdomen, no rebound no guarding. Positive bowel sounds. Extremities: [No clubbing, no edema, no cyanosis.] Neurological Exam: [No focal neurologic deficit. Psychiatric: Normal mood affect and normal mental status examination. Skin: No rashes.] - Labs CBC & Chem 7: 01/12/21 08:06 01/12/21 08:06 Labs: Abnormal Lab Results - Last 24 Hours (Table) 01/11/21 01/11/21 01/12/21 Range/Units 18:26 18:26 08:06 Lymphocytes # 0.8 L (1.0-4.8) k/uL APTT 58.4 H (22.0-30.0) sec Potassium (3.5-5.1) mmol/L BUN (7-17) mg/dL Glucose (74-99) mg/dL CA 125 Antigen 2069.0 H (0.0-30.1) U/mL 01/12/21 01/12/21 Range/Units 08:06 08:06 Lymphocytes # (1.0-4.8) k/uL APTT 51.2 H (22.0-30.0) sec Potassium 3.2 L (3.5-5.1) mmol/L BUN 6 L (7-17) mg/dL Glucose 138 H (74-99) mg/dL CA 125 Antigen (0.0-30.1) U/mL Assessment and Plan Assessment: Impression: Acute abdominal pain with pelvic mass, being evaluated by general surgery and by gynecology. Transient shortness of breath, resolved, negative workup for thrombolytic disease and pulmonary embolism including negative workup for DVT. Abnormal CT angiogram of the chest, however the quality of the angiogram is extremely poor. History of hypertension Dyslipidemia History of depression Recommendation: Reviewed the results of the venous Doppler. I reviewed the results of the VQ scan. Reviewed the CT angiogram of the chest, I would recommend stopping heparin, and no need for further pulmonary follow-up. Time with Patient: Less than 30
[2021-01-12] MEDS: ONDANSETRON 4 MG/2 ML VIAL IVP PRN (12:52)
[2021-01-12] MEDS: HYDROmorphone 1 MG/ML 1 ML SYRINGE IVP PRN ×2 (12:53→21:08)
[2021-01-12] MEDS ORDERED: KETOROLAC 30 MG/ML 1 ML VIAL IVP PRN (14:20)
[2021-01-12] MEDS ORDERED: Potassium Replacement Protocol 1 EACH MISC MISCELLANE PRN (14:22)
[2021-01-12] MEDS: POTASSIUM CHLORIDE ER 20 MEQ TAB.ER PO SCH ×2 (17:16→18:36)
[2021-01-12] MEDS: HEPARIN SODIUM,PORCINE/PF 5,000 UNIT/0.5 ML SYRINGE SQ SCH (21:07)
--- NOTE | 2021-01-12 21:56 | PN ---
PROGRESS NOTE DATE OF SERVICE: 01/12/2021 This 50-year-old woman who was admitted with significant abdominal pain also had multiple lesions in the uterus, also. The patient's CA-125 is also elevated. The patient also had shortness of breath. CT scan showed some suspicious PE but V/Q scan showed low probability for pulmonary embolism. Multiple consultants are following the patient closely. No chest pain. No palpitations. No fever. PHYSICAL EXAMINATION: Alert and oriented times three. Pulse 76, blood pressure 120/38, respirations 16, temperature 98.2, pulse ox 98% on room air. HEENT: Conjunctivae normal. Neck: No JVD. Cardiovascular: S1, S2. Respiratory: Breath sounds diminished in the bases. A few rhonchi. ABDOMEN: Soft obese: No focal deficits. Legs:. Nervous system: No focal deficits. LAB: D-dimer 2.1, sodium 138, potassium 3.2. CA-125 is 2069. The normal is 0 to 30. ASSESSMENT: 1. Acute severe upper abdominal pain for evaluation. 2. Diffuse uterine enlargement with multiple fibroids. 3. Rule out TAX MANAGER CPA malignancy with the elevated CA-125. 4. Shortness of breath possible PE ruled out. 5. Elevated D-dimer of undetermined etiology. 6. Possible large pelvic mass. 7. Increased WBC. 8. Mild lymphopenia. 9. Increased random blood sugar. 10.Gastroesophageal reflux disease. 11.Hypertension. 12.Hyperlipidemia. 13.History of section. 14.History of depression. 15.Carpal tunnel syndrome. 16.Obesity. 17.FULL CODE. RECOMMENDATIONS AND DISCUSSION: Recommend to continue current management and symptomatic treatment. Otherwise, at this time, I recommend closely monitor, closely follow with multiple consultants including Pulmonary and as well as CARTON INSPECTOR surgery and as well as Hematology/Oncology. Prognosis extremely guarded because of above-mentioned multiple complex medical issues and further recommendations to follow. MMODL / IJN: [id number] / JIMMY
[2021-01-13] MEDS: HYDROmorphone 1 MG/ML 1 ML SYRINGE IVP PRN ×2 (04:25→08:57)
[2021-01-13] MEDS: IPRATROPIUM-ALBUTEROL 3 ML NEB INHALATION SCH ×3 (07:04→20:28)
[2021-01-13] MEDS: FENOFIBRATE 160 MG PO SCH (08:58)
[2021-01-13] MEDS: LOSARTAN 50 MG TAB PO SCH (08:58)
[2021-01-13] MEDS: SERTRALINE 25 MG TAB PO SCH (08:58)
[2021-01-13] MEDS: ATORVASTATIN 20 MG TAB PO SCH (08:58)
[2021-01-13] MEDS: HEPARIN SODIUM,PORCINE/PF 5,000 UNIT/0.5 ML SYRINGE SQ SCH ×2 (08:59→21:03)
[2021-01-13] MEDS: PANTOPRAZOLE 40 MG/10 ML VIAL IV SCH ×2 (08:59→21:03)
[2021-01-13] MEDS: METOPROLOL TARTRATE 50 MG TAB PO SCH ×2 (08:59→21:03)
[2021-01-13] MEDS: hydroCHLOROthiazide 12.5 MG CAP PO SCH (09:00)
[2021-01-13 09:14] LABS: Basophils % (A) 0 %; Eosinophils # (A) 0.3 k/uL (0-0.7); Eosinophils % (A) 6 %; HCT 33.8 % (34.0-46.0); HGB 10.9 gm/dL (11.4-16.0); Lymphocytes % (A) 23 %; MCH 27.7 pg (25.0-35.0); MCHC 32.4 g/dL (31.0-37.0); MCV 85.8 fL (80.0-100.0); Mean Platelet Volume 9.2; Monocytes # (A) 0.3 k/uL (0-1.0); Monocytes % (A) 6 %; Neutrophils # (A) 2.6 k/uL (1.3-7.7); Neutrophils % (A) 62 %; Platelet Count 173 k/uL (150-450); RBC 3.94 m/uL (3.80-5.40); RDW 13.1 % (11.5-15.5); WBC 4.2 k/uL (3.8-10.6)
[2021-01-13 09:19] LABS: ALT 19 U/L (4-34); AST 22 U/L (14-36); African American GFR (CKD) >90 (>60 ml/min/1.73 sqM); Albumin 3.7 g/dL (3.5-5.0); Alkaline Phosphatase 51 U/L (38-126); Anion Gap 6 mmol/L; Blood Urea Nitrogen 11 mg/dL (7-17); Calcium 8.9 mg/dL (8.4-10.2); Carbon Dioxide 29 mmol/L (22-30); Chloride 104 mmol/L (98-107); Glucose 105 mg/dL (74-99); Non-African American GFR(CKD) >90 (>60 ml/min/1.73 sqM); Potassium 3.7 mmol/L (3.5-5.1); Sodium 139 mmol/L (137-145); Total Bilirubin 0.6 mg/dL (0.2-1.3); Total Protein 6.6 g/dL (6.3-8.2)
--- NOTE | 2021-01-13 12:24 | P.PN ---
Progress Note - Text Progress Note Date: 01/13/21 Patient states she feels better. Her abdominal pain is improved. The patient will be scheduled for colonoscopy tomorrow. She'll undergo bowel prep today.
[2021-01-13] MEDS ORDERED: PEG 3350-NA SULF,BICARB,CL/KCL 4,000 ML BOTTLE PO ONE (14:00)
--- NOTE | 2021-01-13 20:45 | PN ---
PROGRESS NOTE DATE OF SERVICE: 01/13/2021 This 50-year-old woman who was admitted with acute severe abdominal pain also had diffuse uterine enlargement. CA-[address] Dangelo is planning colonoscopy tomorrow. No chest pain. No palpitations. No fever. Dr. Gomez is also following the patient and recommended possible LINE ERECTOR Oncology as an outpatient evaluation. No chest pain. No palpitations. No fever. PHYSICAL EXAMINATION: Alert and oriented. Pulse 68, blood pressure 120/67, respiration 18, temperature 97.2, pulse ox 94% on room air. HEENT: Conjunctivae normal. Oral mucosa moist. NECK: No jugular venous distention. No lymph node enlargement. CARDIOVASCULAR: S1, S2, muffled. No S3, no S4, RESPIRATORY: Diminished breath sounds at the bases. ABDOMEN: Soft, nontender, obese. LEGS: No edema, no swelling. NERVOUS SYSTEM: No focal deficits. LAB: WBC ( ), hemoglobin 10.9, sodium 139, potassium 3.7. ASSESSMENT: 1. Acute severe abdominal pain for evaluation. 2. Diffuse uterine enlargement and multiple fibroids with possible torsion. 3. Rule out LINE ERECTOR malignancy with elevated CA-125. 4. Hypokalemia. 5. Shortness of breath but PE ruled out. 6. Elevated D-dimer, undetermined etiology. 7. Possible large pelvic mass. 8. Increased WBC. 9. Mild lymphopenia. 10.Increased random glucose. 11.GERD. 12.Hypertension. 13.Hyperlipidemia. 14.History of section. 15.History of depression. 16.Carpal tunnel syndrome. 17.Obesity. 18.FULL CODE. RECOMMENDATIONS: Recommend to continue current medications, symptomatic treatment and closely follow with Surgery and as well as multiple consultants. Further recommendations to follow. Also recommend repeat labs also. Colonoscopy tomorrow by Surgery and if colonoscopy normal patient will be discharged with plan for outpatient followup. MMODL / IJN: [id number] /
--- NOTE | 2021-01-14 00:08 | P.PN ---
Subjective Progress Note Date: 01/13/21 The patient reports significant improvement in her abdominal pain. No nausea or vomiting. She denies any change in bowel habits currently. Appetite is fair. She is currently undergoing prep for colonoscopy tomorrow Objective - Vital Signs Vital signs: Vital Signs Temp 98.2 F 01/13/21 20:00 Pulse 68 01/13/21 20:40 Resp 16 01/13/21 20:00 BP 106/72 01/13/21 16:00 Pulse Ox 97 01/13/21 20:00 Intake & Output 01/13/21 01/13/21 01/14/21 06:59 18:59 06:59 Intake Total 460 Balance 460 Weight 107.4 kg Intake: Oral 460 Other: Voiding Method Toilet Toilet Toilet # Voids 1 3 # Bowel Movements 1 - Constitutional General appearance: Present: no acute distress - EENT Eyes: Present: EOMI ENT: Present: hearing grossly normal, normal oropharynx - Respiratory Respiratory: bilateral: CTA - Cardiovascular Rhythm: regular Heart sounds: normal: S1, S2 - Gastrointestinal General gastrointestinal: Present: normal bowel sounds, soft Localized gastrointestinal: tender: RLQ (vague, minimal) - Integumentary Integumentary: Present: normal - Musculoskeletal Musculoskeletal: Present: strength equal bilaterally - Psychiatric Psychiatric: Present: A&O x's 3 - Labs CBC & Chem 7: 01/13/21 07:38 01/13/21 07:38 Labs: Abnormal Lab Results - Last 24 Hours (Table) 01/13/21 01/13/21 Range/Units 07:38 07:38 Hgb 10.9 L (11.4-16.0) gm/dL Hct 33.8 L (34.0-46.0) % Glucose 105 H (74-99) mg/dL Assessment and Plan (1) Elevated CA-125 Narrative/Plan: The patient's labs showed marked elevation of CA-125 level, in the 2000 range. This was discussed in detail with the admitting service, and with the patient. She was advised that her CA-125 is a peritoneal marker. Elevations can occur due to benign causes such as peritoneal inflammation, infection as well as hemorrhage related to her fibroids. However high elevation at this level is currently suspicious for malignant involvement of the peritoneum. The patient will therefore need further workup for the same. - Agree with colonoscopy to rule out large bowel source of malignancy. - If this is negative, would recommend CYCLE CONSULTANT oncology evaluation. The patient will likely benefit from laparoscopic evaluation to check for any infiltrative process in the peritoneum and biopsy if indicated. This will be set up for the patient as an outpatient. - The patient's clinical presentation, and CT scan is a possibility of intraperitoneal hemorrhage from her fibroids. She was advised that this can certainly cause elevation of CA-125, but again elevation at this level needs to be investigated for possibility of malignancy Current Visit: Yes Status: Acute Code(s): R97.1 - ELEVATED CANCER ANTIGEN 125 [CA 125] SNOMED Code(s): 233950765 (2) Abdominal pain Narrative/Plan: This is improved significantly. Therefore this may be an acute transient event, possibly related to hemorrhage from her fibroids. Current Visit: Yes Status: Acute Code(s): R10.9 - UNSPECIFIED ABDOMINAL PAIN SNOMED Code(s): 36298405 (3) Uterine mass Narrative/Plan: Based on the imaging so far, as well as CYCLE CONSULTANT evaluation these appear to be most likely fibroids. The patient did have endometrial biopsy in 2019 during her ablation, that was negative for malignancy. If malignancy can be ruled out as a cause of the elevated CA-125, the patient can proceed with hysterectomy as planned by gynecology. Current Visit: Yes Status: Acute Code(s): N85.8 - OTHER SPECIFIED NONINFLAMMATORY DISORDERS OF UTERUS SNOMED Code(s): 491881436485773
[2021-01-14 06:53] LABS: Basophils % (A) 0 %; Eosinophils # (A) 0.3 k/uL (0-0.7); Eosinophils % (A) 6 %; HCT 32.8 % (34.0-46.0); Lymphocytes % (A) 20 %; MCH 28.2 pg (25.0-35.0); MCHC 33.6 g/dL (31.0-37.0); Mean Platelet Volume 9.3; Monocytes # (A) 0.3 k/uL (0-1.0); Monocytes % (A) 7 %; Neutrophils # (A) 3.3 k/uL (1.3-7.7); Neutrophils % (A) 65 %; Platelet Count 187 k/uL (150-450); RDW 12.9 % (11.5-15.5); WBC 5.2 k/uL (3.8-10.6)
[2021-01-14 07:05] LABS: African American GFR (CKD) >90 (>60 ml/min/1.73 sqM); Anion Gap 6 mmol/L; Blood Urea Nitrogen 6 mg/dL (7-17); Calcium 8.9 mg/dL (8.4-10.2); Carbon Dioxide 28 mmol/L (22-30); Chloride 106 mmol/L (98-107); Glucose 105 mg/dL (74-99); Non-African American GFR(CKD) >90 (>60 ml/min/1.73 sqM); Sodium 140 mmol/L (137-145)
[2021-01-14] MEDS: IPRATROPIUM-ALBUTEROL 3 ML NEB INHALATION SCH ×2 (07:37→14:57)
[2021-01-14] MEDS: LOSARTAN 50 MG TAB PO SCH (10:19)
[2021-01-14] MEDS: FENOFIBRATE 160 MG PO SCH (10:20)
[2021-01-14] MEDS: METOPROLOL TARTRATE 50 MG TAB PO SCH (10:20)
[2021-01-14] MEDS: HEPARIN SODIUM,PORCINE/PF 5,000 UNIT/0.5 ML SYRINGE SQ SCH (10:20)
[2021-01-14] MEDS: SERTRALINE 25 MG TAB PO SCH (10:20)
[2021-01-14] MEDS: ATORVASTATIN 20 MG TAB PO SCH (10:20)
[2021-01-14] MEDS: hydroCHLOROthiazide 12.5 MG CAP PO SCH (10:20)
[2021-01-14] MEDS: PANTOPRAZOLE 40 MG/10 ML VIAL IV SCH (10:21)
[2021-01-14 11:53] VITALS: RESP 16
[2021-01-14] MEDS ORDERED: LIDOCAINE 1% INJ 10MG/ML (20 ML MDV) ONE (13:04)
[2021-01-14] MEDS ORDERED: PROPOFOL 10 MG/ML 20 ML VIAL IV ONE (13:04)
[2021-01-14] MEDS ORDERED: SODIUM CHLORIDE 0.9% 500 ML 500 ML IV ONE ×2 (13:09)
--- NOTE | 2021-01-14 13:32 | P.OP ---
Date of Procedure: 01/14/21 Preoperative Diagnosis: Abdominal pain Screening colonoscopy Postoperative Diagnosis: Gastritis Diverticulosis External hemorrhoids Procedure(s) Performed: EGD Colonoscopy Anesthesia: MAC Surgeon: Demian Dangelo Pathology: other (Antrum) Condition: stable Disposition: PACU Description of Procedure: The patient's placed on the endoscopy table in the lateral position. She received IV sedation. The gastroscope placed oropharynx passed in the esophagus and stomach. Scope through the pylorus. The first and second portion duodenum appeared normal. Scope was then brought back the antrum this. Mildly inflamed. A biopsies performed. Scope was then retroflexed and the remainder of the stomach appeared normal. The GE junction was at 40 cm. The distal esophagus appeared normal. The proximal esophagus appeared normal. Scope withdrawn for patient. Next digital rectal exam was performed which revealed a few external hemorrhoids. Flexible colonoscope was then placed patient anus passed throughout the entire colon. The pediatric scope was used. The ileocecal valve lesions. There was a large amount of liquid stool in the cecum which prevented visualization of the proximal right colon. There is no obvious mass. The scope back the remainder of the descending colon and transverse colon appeared normal. In the descending and sigmoid colon there is mild diverticular changes. The scope was brought back the rectum this appeared normal. Scope withdrawn for patient.
--- NOTE | 2021-01-14 16:46 | PN ---
PROGRESS NOTE DATE OF SERVICE: 01/14/2021 This 50-year-old woman was admitted with severe abdominal pain also had diffuse uterine enlargement with possible fibroids. The CA-125 was elevated. The patient is slated to have a colonoscopy today by Dr. Dangelo. No chest pain. No palpitations. No fever. Pulmonary embolism is rather being ruled out. Multiple consultants are following the patient closely. The abdominal pain is slightly better. The colonoscopy done by Dr. Dangelo revealed gastritis, diverticulosis and external hemorrhoids. PHYSICAL EXAMINATION: Alert and oriented x3. Pulse is 56. Blood pressure 158/60, respirations 16, temperature 98.2, pulse ox 97% on room air. HEENT: Conjunctivae normal. Neck: No JVD. Cardiovascular: S1, S2. Respiratory: Breath sounds diminished in the bases. No rhonchi. No crackles. Abdomen: Soft, nontender. No mass palpable. Legs are no edema. No swelling. Nervous system: No focal deficits. LABS: WBC 5.2, hemoglobin 11, other labs are noted. ASSESSMENT: 1. Acute severe abdominal pain for evaluation. 2. Diffuse uterine enlargement as well as multiple fibroids with possible torsion. 3. Rule out LAMP DECORATOR malignancy with elevated CA-125. 4. Hypokalemia, improved. 5. Shortness of breath but pulmonary embolism ruled out. 6. Elevated D-dimer of undetermined etiology. No evidence of pulmonary embolism or deep vein thrombosis. 7. Possible large pelvic mass. 8. Increased WBC. 9. Mild leukopenia. 10.Increased random glucose. 11.Gastroesophageal reflux disease. 12.Hypertension. 13.Hyperlipidemia. 14.History of section. 15.History of depression. 16.Carpal tunnel syndrome. 17.Obesity. 18.FULL CODE. RECOMMENDATIONS AND DISCUSSION: I recommend to continue current medications, symptomatic treatment. The patient abdominal symptoms are improved significantly. CA 125 is elevated. I had a detailed discussion with Dr. Gomez who recommended possibly laparoscopic LAMP DECORATOR Oncology. Recommend close followup in the outpatient setting with Dr. Gomez and surgery. Otherwise, await biopsy report. Further recommendations will follow. Follow up with Dr. Isacc De La Rosa in the outpatient patient. MMODL / IJN: [id number] /
[2021-01-14 18:18] VITALS: BP 167/85; PULSE 72; TEMP 98.4
--- NOTE | 2021-01-15 11:48 | CDI ---
Documentation Clarification Form Date: 01/15/2021 11:41:45 AM From: Bert Soto Phone: Admit Date: 01/14/2021 08:18:00 AM Patient Name: Nikki De Los Santos Visit Number: [id number] Discharge Date: 01/14/2021 05:58:00 PM ATTENTION: The Clinical Documentation Specialists (CDI) and [facility] Coding Staff appreciate your assistance in clarifying documentation. Please respond to the clarification below the line at the bottom and electronically sign. The CDI & [facility] Coding staff will review the response and follow-up if needed. Please note: Queries are made part of the Legal Health Record. If you have any questions, please contact the author of this message via ITS. Dr. Demian Otooleania Your patient has the documented symptom of abdominal pain per the H+P. Additional clarification regarding the etiology/cause of this symptom is requested. Patient history/risk factors: leiomyoma, gastritis, diverticulosis Clinical Indicators: Radiology: Labs: Vital Signs: Other Clinical Indicators Treatment: Medication: Consults: Other Treatment: EGD and colonoscopy Please provide additional clarification regarding the etiology/cause of the abdominal pain: [ ] Abdominal pain due to gastritis [ ] Abdominal pain due to leiomyoma [ ] Other, please specify [ x ] Unable to determine [ ] abdominal pain due to divericulosis MTDD
== END 2021-01-14 17:58 | disposition home or self-care (01) | DRG 392 ==
LOC: EC 09:24 → 6PED 13:05 → 3SCARD 01-11 00:40 → OBSVTOIN 01-14 08:18
PROVIDERS: ADMIT Surgery; ATTEND Surgery
PROC: 0DB78ZX Excision of Stomach, Pylorus, Via Natural or Artificial Opening Endoscopic, Diagnostic (ICD-10-PCS; principal; 2021-01-14 07:30)
PROC: 0DJD8ZZ Inspection of Lower Intestinal Tract, Via Natural or Artificial Opening Endoscopic (ICD-10-PCS; 2021-01-14 07:30)
DX: R10.9 Unspecified abdominal pain (principal); D25.9 Leiomyoma of uterus, unspecified; K29.70 Gastritis, unspecified, without bleeding; D72.810 Lymphocytopenia; E66.9 Obesity, unspecified; Z68.38 Body mass index [BMI] 38.0-38.9, adult; E78.5 Hyperlipidemia, unspecified; E87.6 Hypokalemia; F32.A Depression, unspecified; F41.9 Anxiety disorder, unspecified; G56.00 Carpal tunnel syndrome, unspecified upper limb; G89.29 Other chronic pain; I10 Essential (primary) hypertension; K21.9 Gastro-esophageal reflux disease without esophagitis; K57.90 Diverticulosis of intestine, part unspecified, without perforation or abscess without bleeding; K64.4 Residual hemorrhoidal skin tags; K76.0 Fatty (change of) liver, not elsewhere classified; K81.1 Chronic cholecystitis; Z20.822 Contact with and (suspected) exposure to COVID-19; R06.02 Shortness of breath; R79.89 Other specified abnormal findings of blood chemistry; Z79.899 Other long term (current) drug therapy; Z87.891 Personal history of nicotine dependence; Z98.891 History of uterine scar from previous surgery; R19.00 Intra-abdominal and pelvic swelling, mass and lump, unspecified site
CPT/HCPCS: 36415; 43239; 71045; 71275; 74176; 76705; 76856; 78227; 78582; 80048; 80053; 80306; 81001; 81025; 83605; 83690; 83735; 84484; 85025; 85379; 85652; 85730; 86140; 86304; 87635; 88305; 93005; 93970; 94640; 94760; 96374; 99285

== ENCOUNTER 2021-01-22 21:48 | Emergency (ER) | payer OTHER ==
[2021-01-22 22:08] VITALS: RESP 16; TEMP 97.9
[2021-01-22] MEDS ORDERED: HYDROmorphone 0.5 MG/0.5 ML SYRINGE IVP STA (22:12)
--- NOTE | 2021-01-22 22:16 | ED ---
Abdominal Pain HPI - General Chief Complaint: Abdominal Pain Stated Complaint: Abdominal Pain Time Seen by Provider: 01/22/21 21:54 Source: patient, EMS Mode of arrival: EMS Limitations: no limitations - History of Present Illness Initial Comments: This patient is a 50-year-old woman who presents to be evaluated for right lower quadrant pain. She states that it has been present for the past 3 nights much worse tonight. An addition she had been admitted in the hospital here from the to the of this month for the same pain. She states she had extensive studies and they told her that she had uterine masses and she is scheduled to have a hysterectomy next week. Patient states that the pain became so severe that she called EMS to bring her here. While she was in the ambulance she had an episode of sweating and nausea. She states she does feel a little better now. No change in urination or bowel movements. No vomiting. MD Complaint: abdominal pain Onset/Timin -: days(s) Location: RLQ Radiation: none Migration to: no migration Severity: severe Quality: aching Consistency: colicky Improves With: nothing Worsens With: nothing Associated Symptoms: nausea, other Treatments Prior to Arrival: NSAIDs - Related Data Home Medications Medication Instructions Recorded Confirmed Atorvastatin [Lipitor] 20 mg PO DAILY 03/11/18 01/10/21 Fenofibrate Nanocrystallized 145 mg PO DAILY 03/11/18 01/10/21 [Fenofibrate] Metoprolol Tartrate [Lopressor] 50 mg PO BID 03/11/18 01/10/21 Omeprazole 20 mg PO DAILY 03/11/18 01/10/21 Sertraline [Zoloft] 75 mg PO DAILY 03/11/18 01/10/21 Irbesartan/Hydrochlorothiazide 1 tab PO DAILY 01/10/21 01/10/21 [Irbesartan-Hctz 300-12.5 mg Tb] Previous Rx's Medication Instructions Recorded Acetaminophen Tab [Tylenol] 650 mg PO Q6HR PRN tab 01/14/21 Omeprazole [PriLOSEC] 40 mg PO DAILY #30 cap 01/14/21 HYDROcodone/APAP 7.5-325MG [[place] 1 tab PO Q4H PRN 3 Days #18 tab 01/23/21 7.5-325] Allergies Allergy/AdvReac Type Severity Reaction Status Date / Time latex Allergy Rash/Hives Verified 01/10/21 11:11 Review of Systems ROS Statement: Those systems with pertinent positive or pertinent negative responses have been documented in the HPI. ROS Other: All systems not noted in ROS Statement are negative. Constitutional: Denies: fever, chills Respiratory: Denies: cough, dyspnea Cardiovascular: Denies: chest pain, palpitations, edema Gastrointestinal: Reports: abdominal pain, nausea. Denies: vomiting, diarrhea, constipation, melena, hematochezia Genitourinary: Denies: dysuria, frequency, hematuria, discharge Musculoskeletal: Denies: back pain Skin: Denies: rash Neurological: Denies: headache, weakness Past Medical History Past Medical History: GERD/Reflux, Hyperlipidemia, Hypertension Additional Past Medical History / Comment(s): heavy periods History of Any Multi-Drug Resistant Organisms: None Reported Past Surgical History: Section Additional Past Surgical History / Comment(s): D&C. LIPOMA REMOVAL. CARPAL TUNNEL RELEASE Past Anesthesia/Blood Transfusion Reactions: No Reported Reaction Past Psychological History: Anxiety, Depression Smoking Status: Never smoker Past Alcohol Use History: Occasional Past Drug Use History: None Reported - Past Family History Mother Family Medical History: No Reported History Father Family Medical History: No Reported History General Exam Limitations: no limitations General appearance: alert, in no apparent distress Head exam: Present: atraumatic, normocephalic Eye exam: Present: normal appearance. Absent: scleral icterus, conjunctival injection Neck exam: Present: normal inspection Respiratory exam: Present: normal lung sounds bilaterally. Absent: respiratory distress, wheezes, rales, rhonchi, stridor Cardiovascular Exam: Present: regular rate, normal rhythm, normal heart sounds. Absent: systolic murmur, diastolic murmur, rubs, gallop GI/Abdominal exam: Present: soft, tenderness, normal bowel sounds. Absent: distended, guarding, rebound, rigid, mass, pulsatile mass, hernia Extremities exam: Present: normal inspection, normal capillary refill. Absent: pedal edema, calf tenderness Back exam: Present: normal inspection. Absent: CVA tenderness (R), CVA tenderness (L) Neurological exam: Present: alert Skin exam: Present: warm, dry, intact, normal color. Absent: rash Course Vital Signs 01/22/21 22:00 Temperature 97.9 F Pulse Rate 77 Respiratory 16 Rate Blood Pressure 125/63 O2 Sat by Pulse 98 Oximetry Medical Decision Making - Lab Data Result diagrams: 01/22/21 22:52 01/22/21 22:52 Lab Results 01/22/21 01/22/21 01/22/21 Range/Units 22:52 22:52 22:52 WBC 18.3 H (3.8-10.6) k/uL RBC 4.26 (3.80-5.40) m/uL Hgb 11.5 (11.4-16.0) gm/dL Hct 34.8 (34.0-46.0) % MCV 81.8 (80.0-100.0) fL MCH 27.0 (25.0-35.0) pg MCHC 33.0 (31.0-37.0) g/dL RDW 12.7 (11.5-15.5) % Plt Count 295 (150-450) k/uL MPV 9.0 Neutrophils % 89 % Lymphocytes % 6 % Monocytes % 3 % Eosinophils % 1 % Basophils % 0 % Neutrophils # 16.3 H (1.3-7.7) k/uL Lymphocytes # 1.1 (1.0-4.8) k/uL Monocytes # 0.6 (0-1.0) k/uL Eosinophils # 0.2 (0-0.7) k/uL Basophils # 0.0 (0-0.2) k/uL Sodium (137-145) mmol/L Potassium (3.5-5.1) mmol/L Chloride (98-107) mmol/L Carbon Dioxide (22-30) mmol/L Anion Gap mmol/L BUN (7-17) mg/dL Creatinine (0.52-1.04) mg/dL Est GFR (CKD-EPI)AfAm (>60 ml/min/1.73 sqM) Est GFR (CKD-EPI)NonAf (>60 ml/min/1.73 sqM) Glucose (74-99) mg/dL Calcium (8.4-10.2) mg/dL Total Bilirubin (0.2-1.3) mg/dL AST (14-36) U/L ALT (4-34) U/L Alkaline Phosphatase (38-126) U/L C-Reactive Protein (<1.0) mg/dL Total Protein (6.3-8.2) g/dL Albumin (3.5-5.0) g/dL Urine Color Dark Yellow Urine Appearance Cloudy H (Clear) Urine pH 5.5 (5.0-8.0) Ur Specific Preston 1.039 H (1.001-1.035) Urine Protein 2+ H (Negative) Urine Glucose (UA) Trace H (Negative) Urine Ketones Negative (Negative) Urine Blood Small H (Negative) Urine Nitrite Negative (Negative) Urine Bilirubin Negative (Negative) Urine Urobilinogen 2.0 (<2.0) mg/dL Ur Leukocyte Esterase Trace H (Negative) Urine RBC 6 H (0-5) /hpf Urine WBC 7 H (0-5) /hpf Ur Squamous Epith Cells 4 (0-4) /hpf Calcium Oxalate Crystal Moderate H (None) /hpf Urine Bacteria Occasional H (None) /hpf Hyaline Casts 41 H (0-2) /lpf Urine Mucus Many H (None) /hpf Urine HCG, Qual Not Detected (Not Detectd) 01/22/21 Range/Units 22:52 WBC (3.8-10.6) k/uL RBC (3.80-5.40) m/uL Hgb (11.4-16.0) gm/dL Hct (34.0-46.0) % MCV (80.0-100.0) fL MCH (25.0-35.0) pg MCHC (31.0-37.0) g/dL RDW (11.5-15.5) % Plt Count (150-450) k/uL MPV Neutrophils % % Lymphocytes % % Monocytes % % Eosinophils % % Basophils % % Neutrophils # (1.3-7.7) k/uL Lymphocytes # (1.0-4.8) k/uL Monocytes # (0-1.0) k/uL Eosinophils # (0-0.7) k/uL Basophils # (0-0.2) k/uL Sodium 137 (137-145) mmol/L Potassium 3.3 L (3.5-5.1) mmol/L Chloride 106 (98-107) mmol/L Carbon Dioxide 22 (22-30) mmol/L Anion Gap 9 mmol/L BUN 15 (7-17) mg/dL Creatinine 0.68 (0.52-1.04) mg/dL Est GFR (CKD-EPI)AfAm >90 (>60 ml/min/1.73 sqM) Est GFR (CKD-EPI)NonAf >90 (>60 ml/min/1.73 sqM) Glucose 135 H (74-99) mg/dL Calcium 8.4 (8.4-10.2) mg/dL Total Bilirubin 0.2 (0.2-1.3) mg/dL AST 20 (14-36) U/L ALT 16 (4-34) U/L Alkaline Phosphatase 50 (38-126) U/L C-Reactive Protein 2.8 H (<1.0) mg/dL Total Protein 6.1 L (6.3-8.2) g/dL Albumin 3.5 (3.5-5.0) g/dL Urine Color Urine Appearance (Clear) Urine pH (5.0-8.0) Ur Specific Preston (1.001-1.035) Urine Protein (Negative) Urine Glucose (UA) (Negative) Urine Ketones (Negative) Urine Blood (Negative) Urine Nitrite (Negative) Urine Bilirubin (Negative) Urine Urobilinogen (<2.0) mg/dL Ur Leukocyte Esterase (Negative) Urine RBC (0-5) /hpf Urine WBC (0-5) /hpf Ur Squamous Epith Cells (0-4) /hpf Calcium Oxalate Crystal (None) /hpf Urine Bacteria (None) /hpf Hyaline Casts (0-2) /lpf Urine Mucus (None) /hpf Urine HCG, Qual (Not Detectd) Disposition Clinical Impression: Uterine mass Disposition: HOME SELF-CARE Condition: Good Prescriptions: HYDROcodone/APAP 7.5-325MG [[place] 7.5-325] 1 tab PO Q4H PRN 3 Days #18 tab PRN Reason: Pain Is patient prescribed a controlled substance at d/c from ED?: Yes When asked, does pt state using other controlled substances?: No If prescribed controlled substance>3 days was MAPS reviewed?: Prescribed <3 Days If opioid is for acute pain is fill amount 7 days or less?: Yes If Rx opioid, was Start Talking consent form obtained?: Yes Referrals: Nick De La Rosa MD [Primary Care Provider] - 1-2 days
[2021-01-22 23:17] LABS: Basophils % (A) 0 %; Eosinophils # (A) 0.2 k/uL (0-0.7); Eosinophils % (A) 1 %; HCT 34.8 % (34.0-46.0); HGB 11.5 gm/dL (11.4-16.0); Lymphocytes # (A) 1.1 k/uL (1.0-4.8); Lymphocytes % (A) 6 %; MCV 81.8 fL (80.0-100.0); Monocytes # (A) 0.6 k/uL (0-1.0); Monocytes % (A) 3 %; Neutrophils # (A) 16.3 k/uL (1.3-7.7); Neutrophils % (A) 89 %; Platelet Count 295 k/uL (150-450); RBC 4.26 m/uL (3.80-5.40); RDW 12.7 % (11.5-15.5); WBC 18.3 k/uL (3.8-10.6)
[2021-01-22 23:21] LABS: Appearance,Urine Cloudy (Clear); Bacteria,Urine Occasional /hpf; Bilirubin,Urine Negative (Negative); Blood,Urine Small (Negative); Calcium Oxalate Crystals,Urine Moderate /hpf; Color,Urine Dark Yellow; Glucose,Urine (UA) Trace (Negative); Hyaline Casts,Urine 41 /lpf (0-2); Ketones,Urine Negative (Negative); Leukocyte Esterase,Urine Trace (Negative); Mucus,Urine Many /hpf; Nitrite,Urine Negative (Negative); PH, Urine 5.5 (5.0-8.0); Protein,Urine 2+ (Negative); RBC,Urine 6 /hpf (0-5); Specific Gravity,Urine 1.039 (1.001-1.035); Squamous Epithelial Cell,Urine 4 /hpf (0-4); WBC,Urine 7 /hpf (0-5)
--- NOTE | 2021-01-22 23:23 | XR ---
EXAMINATION TYPE: XR KUB DATE OF EXAM: 01/22/2021 COMPARISON: NONE HISTORY: Flank pain TECHNIQUE: 2 views upright FINDINGS: There is no sign of intestinal obstruction or pneumoperitoneum. Fecal pattern is normal. Regina ng bases are clear. There are no calcifications over the kidneys. Bony structures are intact IMPRESSION: Nonacute abdomen.
[2021-01-22 23:41] LABS: ALT 16 U/L (4-34); AST 20 U/L (14-36); African American GFR (CKD) >90 (>60 ml/min/1.73 sqM); Albumin 3.5 g/dL (3.5-5.0); Alkaline Phosphatase 50 U/L (38-126); Anion Gap 9 mmol/L; Blood Urea Nitrogen 15 mg/dL (7-17); C Reactive Protein 2.8 mg/dL (<1.0); Calcium 8.4 mg/dL (8.4-10.2); Carbon Dioxide 22 mmol/L (22-30); Chloride 106 mmol/L (98-107); Glucose 135 mg/dL (74-99); Non-African American GFR(CKD) >90 (>60 ml/min/1.73 sqM); Potassium 3.3 mmol/L (3.5-5.1); Sodium 137 mmol/L (137-145); Total Bilirubin 0.2 mg/dL (0.2-1.3); Total Protein 6.1 g/dL (6.3-8.2)
[2021-01-23] MEDS ORDERED: HYDROmorphone 0.5 MG/0.5 ML SYRINGE IVP STA (01:54)
[2021-01-23 02:19] VITALS: BP 118/70; PULSE 70
== END 2021-01-23 02:27 | disposition home or self-care (01) ==
LOC: EC 21:48
DX: N85.8 Other specified noninflammatory disorders of uterus (principal); E78.5 Hyperlipidemia, unspecified; I10 Essential (primary) hypertension; F41.9 Anxiety disorder, unspecified; F32.A Depression, unspecified; Z72.89 Other problems related to lifestyle; Z79.899 Other long term (current) drug therapy
CPT/HCPCS: 99284; 96374; 96376; 36415; 80053; 85025; 86140; 81001; 81025; 74018; J1170